=== PATIENT | female | born 1990 | race Caucasian/White ===

== ENCOUNTER 2016-07-02 18:16 | Emergency (ER) | payer OTHER ==
[2016-07-02] MEDS ORDERED: Azithromycin TAB* 250 MG PO ONE (18:57)
[2016-07-02] MEDS ORDERED: DOXYcycline CAP(*) 100 MG PO ONE (18:58)
--- NOTE | 2016-07-02 21:30 | UC ---
Jovana Fernandez Michael, scribed for Fanny Melgar MD on 07/02/16 at 1851 . Complaint Female HPI - HPI Summary HPI Summary: 26 y/o female comes to [facility] presenting with constant dysuria that started gradually today. The pt reports that the pain is a 3 out of 10 on a pain assessment scale. She also c/o vaginal discharge and abd pain. The abd pain is described as cramping and does not radiate to other parts of her body. She was drinking alcohol one ago and felt "hungover" this morning. She also had unprotected intercourse last night. The pt is A2. She had one miscarriage and one . The occurred in February 2016. Her LNMP was one month ago. The PMHx is significant for DM and 2 Cesarian sections. The pt denies taking control. Pt is a type I DM on the pump. - History Of Current Complaint Chief Complaint: UCGU Stated Complaint: POSSIBLE UTI Time Seen by Provider: 07/02/16 18:20 Hx Obtained From: Patient, Medical Records Hx Last Menstrual Period: 06/02 ?: No Onset/Duration: Gradual Onset, Lasting Days, Still Present Timing: Constant Severity Initially: Mild Severity Currently: Mild Pain Intensity: 3 Pain Scale Used: 0-10 Numeric Character: Cramping Aggravating Factor(s): Nothing Alleviating Factor(s): Nothing Associated Signs And Symptoms: Positive: Vaginal Discharge. Negative: Negative - positive dysuria and abd pain, Fever Related Hx: - 4, Para - 2, Prior STD Hx - chlamydia - Risk Factors Ectopic Risk Factor: Negative Ovarian Torsion Risk Factor: Negative - Allergies/Home Medications Allergies/Adverse Reactions: Allergies Allergy/AdvReac Type Severity Reaction Status Date / Time Amoxicillin Allergy Severe Anaphylatic Verified 01/29/16 17:48 Shock Cefaclor [From Ceclor] Allergy Severe Anaphylatic Verified 01/29/16 17:48 Shock Penicillins Allergy Severe Anaphylatic Verified 01/29/16 17:48 Shock PMH/Surg Hx/FS Hx/Imm Hx Endocrine History Of: Reports: Diabetes - Type I for 11 years. - Surgical History Surgical History: Yes Surgery Procedure, Year, and Place: C-SECTIONS x 2 - Family History Known Family History: Positive: None Negative: Diabetes, Seizure Disorder, Blood Disorder - Social History Occupation: Employed Full-time Lives: Alone Alcohol Use: Rare Substance Use Type: None Substance Use Comment - Amount & Last Used: occasional Smoking Status (MU): Light Every Day Tobacco Smoker Type: Cigarettes Amount Used/How Often: 1 PPD Have You Smoked in the Last Year: Yes - Immunization History Most Recent Influenza Vaccination: 2009 Most Recent Tetanus Shot: UNSURE Most Recent Pneumonia Vaccination: NEVER Review of Systems Constitutional: Negative - fever Gastrointestinal: Abdominal Pain Genitourinary: Dysuria, Other - vaginal discharge All Other Systems Reviewed And Are Negative: Yes Physical Exam Triage Information Reviewed: Yes Appearance: Well-Appearing, Well-Nourished, Pain Distress - mild Vital Signs: Initial Vital Signs Temp 98.5 F 07/02/16 18:23 Pulse 75 07/02/16 18:23 Resp 18 07/02/16 18:23 Pulse Ox 98 07/02/16 18:23 Vital Signs Reviewed: Yes Eyes: Positive: Conjunctiva Clear ENT Exam: Normal Neck: Positive: Supple Respiratory: Positive: Lungs clear, Normal breath sounds, No respiratory distress Cardiovascular: Positive: RRR, No Murmur, Pulses Normal, Brisk Capillary Refill Abdomen Description: Positive: Nontender, No Organomegaly, Soft, Other: - moderate vaginal discharge that was white. Cervix closed and non-tender. Uterus nml size and non-tender. Adnexae no masses and nontender. Negative: CVA Tenderness (R), CVA Tenderness (L), Distended, Guarding, McBurney's Point Tenderness, Peritoneal Signs Bowel Sounds: Positive: Present Musculoskeletal: Positive: Strength Intact, ROM Intact Neurological: Positive: Alert, Muscle Tone Normal Psychological Exam: Normal Skin Exam: Normal Complaint Female Dx - Course Course Of Treatment: Pt declines HIV testing and blood testing (syphilis). States she would like to treated for all STD's, is allergic to PCN and cephalosporin - Differential Dx/Diagnosis Differential Diagnosis/HQI/PQRI: Pelvic Inflammatory Disease, Urinary Tract Infection Provider Diagnoses: vaginitis. dysuria Discharge - Discharge Plan Condition: Stable Disposition: HOME Prescriptions: DOXYcycline CAP(*) [DOXYcycline 100MG CAP(*)] 100 mg PO BID #20 cap Patient Education Materials: Sexually Transmitted Diseases (ED) Referrals: Benigno Umana MD [Primary Care Provider] - Additional Instructions: Dr. Melgar has treated you with azithromycin 1000mg orally tonight, that is the treatment for chlamydia. She gave the first pill and has also sent a prescription for doxycycline 100mg, that needs to be taken twice a day for 10 days. This is the treatment for gonorrhea. You have chosen to have us treat you empirically for STDS, and we have taken note of your penicillin and cefaclor allergy in choosing your treatment. You have chosen not to be treated for syphilis or HIV at this time. We have also sent a culture of your urine and your vaginal discharge. We will notify you if you need further treatment based on those cultures, which will be back in a few days. Return to urgent care if you have any new or worsening symptoms. The documentation as recorded by the Jovana alexandre Michael accurately reflects the service I personally performed and the decisions made by , Fanny Melgar MD.
== END 2016-07-02 19:26 | disposition home or self-care (01) ==
LOC: UCEAST 18:16
DX: N76.0 Acute vaginitis (principal); R30.0 Dysuria; Z32.02 Encounter for pregnancy test, result negative; E10.9 Type 1 diabetes mellitus without complications; Z96.41 Presence of insulin pump (external) (internal); Z88.1 Allergy status to other antibiotic agents; Z88.0 Allergy status to penicillin; F17.210 Nicotine dependence, cigarettes, uncomplicated
CPT/HCPCS: 81002; 81025; 87077; 87086; 87186; 87480; 87491; 87510; 87591; 87661; 99212; A9270-GY; G0463

== ENCOUNTER 2016-09-08 19:48 | Emergency (ER) | payer OTHER ==
[2016-09-08 21:14] VITALS: BP 119/64
[2016-09-08] MEDS ORDERED: Fluconazole 100 MG TAB* TAB PO ONE (22:21)
--- NOTE | 2016-09-09 08:28 | UC ---
Complaint Female HPI - HPI Summary HPI Summary: Pleasant 26 yo female presents for evaluation treatment of white vag d/c and pruritus over the last couple days. No fever / chills. No abd or pelvic pain. Hx of similar in the past, and diflucan has helped. Wasn't able to see her doctor today, but plans to f/u. Does have a hx T 1 DM, has a pump, last few blood sugars a little high in the 200's. Last period one month ago, normal. - History Of Current Complaint Chief Complaint: UCGU Stated Complaint: DISCHARGE Time Seen by Provider: 09/08/16 22:20 Hx Obtained From: Patient Hx Last Menstrual Period: 08/11/16 Onset/Duration: Gradual Onset Pain Intensity: 0 Pain Scale Used: 0-10 Numeric - Allergies/Home Medications Allergies/Adverse Reactions: Allergies Allergy/AdvReac Type Severity Reaction Status Date / Time Amoxicillin Allergy Severe Anaphylatic Verified 09/08/16 21:13 Shock Cefaclor [From Ceclor] Allergy Severe Anaphylatic Verified 09/08/16 21:13 Shock Penicillins Allergy Severe Anaphylatic Verified 09/08/16 21:13 Shock Home Medications: Home Medications Escitalopram Oxalate [Lexapro] 20 mg PO 09/08/16 [History] hydrOXYzine HCL TAB* [Atarax TAB 50 MG *] 50 mg PO DAILY 09/08/16 [History Confirmed 09/08/16] PMH/Surg Hx/FS Hx/Imm Hx Previously Healthy: Yes - see hpi Endocrine History Of: Reports: Diabetes - Type I for 11 years. Denies: Thyroid Disease, Hyperthyroidism, Hypothyroidism, Dyslipidemia Cardiovascular History Of: Denies: Cardiac Disorders, Hypertension, Pacemaker/ICD, Myocardial Infarction , Congestive Heart Failure, Atrial Fibrillation, Deep Vein Thrombosis, Bleeding Disorders Respiratory History Of: Denies: COPD, Asthma, Bronchitis, Pneumonia, Pulmonary Embolism GI/ History Of: Denies: Gastroesophageal Reflux, Ulcer, Gastrointestinal Bleed, Gall Bladder Disease, Kidney Stones, Diverticulitis, Renal Disease, Urosepsis Neurological History Of: Denies: TIA, CVA, Dementia, Seizures, Migraine Psychological History Of: Denies: Anxiety, Depression, Bipolar Disorder, Schizophrenia, Post Traumatic Stress Disorder Cancer History Of: Denies: Lung Cancer, Colorectal Cancer, Breast Cancer, Prostate Cancer, Cervical Cancer Other History Of: Negative For: HIV, Hepatitis B, Hepatitis C - Surgical History Surgical History: Yes Surgery Procedure, Year, and Place: C-SECTIONS x 2 - Family History Known Family History: Positive: None Negative: Diabetes, Seizure Disorder, Blood Disorder - Social History Alcohol Use: None Substance Use Type: None Substance Use Comment - Amount & Last Used: occasional Smoking Status (MU): Light Every Day Tobacco Smoker Type: Cigarettes Amount Used/How Often: 1 PPD Length of Time of Smoking/Using Tobacco: 7 Have You Smoked in the Last Year: Yes - Immunization History Most Recent Influenza Vaccination: 2009 Most Recent Tetanus Shot: UNSURE Most Recent Pneumonia Vaccination: NEVER Review of Systems Constitutional: Negative Skin: Other - see hpi Eyes: Negative ENT: Negative Respiratory: Negative Cardiovascular: Negative Gastrointestinal: Negative Genitourinary: Other - freq / urgency. But not sure if abnormal. Motor: Negative Neurovascular: Negative Musculoskeletal: Negative Neurological: Negative Psychological: Negative All Other Systems Reviewed And Are Negative: Yes Physical Exam Triage Information Reviewed: Yes Appearance: Well-Appearing, Well-Nourished Vital Signs: Initial Vital Signs Temp 97.7 F 09/08/16 21:06 Pulse 89 09/08/16 21:06 Resp 16 09/08/16 21:06 BP 119/64 09/08/16 21:06 Pulse Ox 96 09/08/16 21:06 Vital Signs Reviewed: Yes ENT Exam: Normal Neck exam: Normal Respiratory Exam: Normal Respiratory: Positive: Chest non-tender, Lungs clear, Normal breath sounds, No respiratory distress, No accessory muscle use Cardiovascular Exam: Normal Cardiovascular: Positive: RRR, No Murmur, Pulses Normal, Brisk Capillary Refill Abdominal Exam: Normal Abdomen Description: Positive: Nontender, No Organomegaly - pump in place, Soft , Other: - Pelvic nontender. No cvat. Pt declines focused pelvic exam, citing that her current sx are just like past yeast vaginitis sx, most recently in the last 1-2 months. Musculoskeletal Exam: Normal - gait steady. moves all 4 ext's. Neurological Exam: Normal - nonfocal. grossly normal. Psychological Exam: Normal - conversing easily and appropriately. Skin Exam: Normal - no visible or reported rash, exp pruritus as per hpi Complaint Female Dx - Course Course Of Treatment: No new problems in CCC. Reviewed urine dip / ucg (neg). Will start diflucan (we only have 100mg available here, as such will dose with 200mg). Rx written so that she can take following day. Plans to f/u with pcp, per routine, will call on Sunday. Will seek medical attention sooner for worse or new problems in the meantime. Questions answered as posed. - Differential Dx/Diagnosis Provider Diagnoses: Vaginitis. Discharge - Discharge Plan Condition: Stable Disposition: HOME Prescriptions: Fluconazole 100 MG TAB* [Diflucan 100 MG TAB*] 150 mg PO DAILY #2 tab Patient Education Materials: Vulvovaginal Candidiasis (ED) Referrals: Benigno Umana MD [Primary Care Provider] - Additional Instructions: Follow up with your primary care physician, per routine. You have a urine culture in the lab. Seek medical attention for worse or new problems.
== END 2016-09-08 23:24 | disposition home or self-care (01) ==
LOC: UCEAST 19:48
DX: N76.0 Acute vaginitis (principal); E10.9 Type 1 diabetes mellitus without complications; Z96.41 Presence of insulin pump (external) (internal); Z88.1 Allergy status to other antibiotic agents; Z88.0 Allergy status to penicillin; F17.210 Nicotine dependence, cigarettes, uncomplicated; Z32.02 Encounter for pregnancy test, result negative
CPT/HCPCS: 81003; 84702; 87086; 99212; A9270-GY; G0463

== ENCOUNTER 2016-11-30 13:41 | Emergency (ER) | payer SELFPAY ==
[2016-11-30 14:05] VITALS: BP 108/59
--- NOTE | 2016-11-30 14:33 | UC ---
Complaint Female HPI - HPI Summary HPI Summary: Vaginal itching and burning for 1.5 weeks. Took oral diflucan last week with temporary relief, then much worse starting 3 days ago. Has also started a new sexual relationship with a male, interested in GC/Chlamydia testing and urine hcg due to late menses. - History Of Current Complaint Chief Complaint: UCGeneralIllness Stated Complaint: PERSONAL Time Seen by Provider: 11/30/16 14:02 Hx Obtained From: Patient Hx Last Menstrual Period: October 21, 2016 Onset/Duration: Gradual Onset, Lasting Weeks Timing: Intermittent Severity Initially: Mild Severity Currently: Mild Character: Burning Aggravating Factor(s): Urination Associated Signs And Symptoms: Negative: Fever, Back Pain, Vaginal Bleeding/ Discharge, Vaginal Discharge, Vomiting(# Of Episodes =) - Allergies/Home Medications Allergies/Adverse Reactions: Allergies Allergy/AdvReac Type Severity Reaction Status Date / Time Amoxicillin Allergy Severe Anaphylatic Verified 11/30/16 14:06 Shock Cefaclor [From Ceclor] Allergy Severe Anaphylatic Verified 11/30/16 14:06 Shock Penicillins Allergy Severe Anaphylatic Verified 11/30/16 14:06 Shock Home Medications: Home Medications Miconazole Nitrate Vaginal [Monistat 1 Combo Pack 1200 & 2 mg & %] 11/30/16 [ History] PMH/Surg Hx/FS Hx/Imm Hx Other History Of: Negative For: HIV, Hepatitis B, Hepatitis C - Surgical History Surgical History: Yes Surgery Procedure, Year, and Place: C-SECTIONS x 2 - Family History Known Family History: Negative: Diabetes, Seizure Disorder, Blood Disorder - Social History Alcohol Use: None Substance Use Type: None Substance Use Comment - Amount & Last Used: occasional Smoking Status (MU): Heavy Every Day Tobacco Smoker Type: Cigarettes Amount Used/How Often: 1 PPD Length of Time of Smoking/Using Tobacco: 7 Have You Smoked in the Last Year: Yes Cessation Counseling: Patient Advised to Stop - Immunization History Most Recent Influenza Vaccination: 2009 Most Recent Tetanus Shot: UNSURE Most Recent Pneumonia Vaccination: NEVER Review of Systems Constitutional: Negative Skin: Negative Eyes: Negative ENT: Negative Respiratory: Negative Cardiovascular: Negative Gastrointestinal: Negative Genitourinary: Other - vaginal itching Motor: Negative Neurovascular: Negative Musculoskeletal: Negative Neurological: Negative Psychological: Negative All Other Systems Reviewed And Are Negative: Yes Physical Exam Triage Information Reviewed: Yes Appearance: Well-Appearing, No Pain Distress, Well-Nourished Vital Signs: Initial Vital Signs Pulse 81 11/30/16 13:57 Resp 14 11/30/16 13:57 BP 108/59 11/30/16 13:57 Pulse Ox 99 11/30/16 13:57 Vital Signs Reviewed: Yes Eye Exam: Normal Eyes: Positive: Conjunctiva Clear ENT Exam: Normal ENT: Positive: Normal ENT inspection, Hearing grossly normal, Pharynx normal, TMs normal Dental Exam: Normal Neck exam: Normal Neck: Positive: Supple, Nontender, No Lymphadenopathy Respiratory Exam: Normal Respiratory: Positive: Chest non-tender, Lungs clear, Normal breath sounds, No respiratory distress, No accessory muscle use Cardiovascular Exam: Normal Cardiovascular: Positive: RRR, No Murmur Abdominal Exam: Normal Abdomen Description: Positive: Nontender, No Organomegaly, Soft Musculoskeletal Exam: Normal Neurological Exam: Normal Neurological: Positive: Alert Psychological Exam: Normal Skin Exam: Normal - Additional Comments pelvic exam performed, no ulcers, lesions, or masses to external genitalia. minor diffuse edema and redness to labia minora. Vaginal mucosa obscured by thick white vaginal medicine, swabs obtained and cervix nontender, no bleeding or masses. Adnexa nontender. Complaint Female Dx - Differential Dx/Diagnosis Provider Diagnoses: vaginitis, suspect yeast Discharge - Discharge Plan Condition: Stable Disposition: HOME Prescriptions: Fluconazole 100 MG TAB* [Diflucan 100 MG TAB*] 150 mg PO DAILY #2 tab Patient Education Materials: Vaginitis (ED) Referrals: Benigno Umana MD [Primary Care Provider] - Additional Instructions: I am treating you for yeast, but I have sent in testing for other possible causes for your symptoms as well. Please call or return if you have new or worsening symptoms.
--- NOTE | 2016-12-01 19:09 | UC ---
IYosef Aidan, scribed for Itzel Miller MD on 12/01/16 at 1829 . Progress - Progress Note Progress Note: RN to call patient. Rx for metronidazole e-scribed to pharmacy. Rx #[id number] The documentation as recorded by the damianibYosef brown Aidan accurately reflects the service I personally performed and the decisions made by Paul jordan Monica, MD.
== END 2016-11-30 14:49 | disposition home or self-care (01) ==
LOC: UCEAST 13:41
DX: N76.0 Acute vaginitis (principal); N92.5 Other specified irregular menstruation; Z32.02 Encounter for pregnancy test, result negative; Z11.3 Encounter for screening for infections with a predominantly sexual mode of transmission; Z88.1 Allergy status to other antibiotic agents; Z88.0 Allergy status to penicillin; F17.210 Nicotine dependence, cigarettes, uncomplicated
CPT/HCPCS: 81003; 84702; 87480; 87491; 87510; 87591; 87661; 99212; G0463

== ENCOUNTER 2016-12-15 08:49 | Emergency (ER) | payer SELFPAY ==
[2016-12-15 09:09] VITALS: BP 119/65
[2016-12-15 09:52] LABS: Hematocrit 39 % (35-47); Mean Corpuscular HGB Conc 34 g/dl (31-36); Mean Corpuscular Hemoglobin 31 pg (27-31); Mean Corpuscular Volume 93 fL (80-97); Mean Platelet Volume 8 um3 (7.4-10.4); Red Blood Count 4.15 10^6/ul (4.0-5.4); Red Cell Distribution Width 13 % (10.5-15); White Blood Count 5.8 10^3/ul (3.5-10.8)
[2016-12-15 09:54] LABS: Urine Bilirubin Negative (Negative); Urine Glucose Negative (Negative); Urine Nitrite Negative (Negative)
[2016-12-15 10:05] LABS: Albumin 4.1 g/dL (3.2-5.2); BUN/Creatinine Ratio 10.9 (8-20); EGFR African American 95.7 (>60); EGFR Non-African American 74.4 (>60); Potassium 3.9 mmol/L (3.5-5.0); Total Protein 6.6 g/dL (6.4-8.9)
[2016-12-15 10:06] LABS: Globulin 2.5 g/dL (2-4); Total Bilirubin 0.4 mg/dL (0.2-1.0)
--- NOTE | 2016-12-15 10:27 | ED ---
HPI Diabetic - HPI Summary HPI Summary: 26F w/ PMH of DM1 presents with hypoglycemia today. She was at home and her sugar was 30. She has an insulin pump which she has had for 2 years. She denies any recent illness. This is the second episode of this this week. Her boyfriend placed sugar in her gums and she became responsive again. She states she has been more active recently. She does not have anyone managing her DM at the moment as she lost her insurance and can not be seen by dr Nuñez anymore. She denies any cough, abdominal pain, or UTI symptoms - History Of Current Complaint Chief Complaint: EDDiabeticProb Time Seen by Provider: 12/15/16 09:01 - Allergies/Home Medications Allergies/Adverse Reactions: Allergies Allergy/AdvReac Type Severity Reaction Status Date / Time Amoxicillin Allergy Severe Anaphylatic Verified 11/30/16 14:06 Shock Cefaclor [From Ceclor] Allergy Severe Anaphylatic Verified 11/30/16 14:06 Shock Penicillins Allergy Severe Anaphylatic Verified 11/30/16 14:06 Shock PMH/Surg Hx/FS Hx/Imm Hx Endocrine/Hematology History: Reports: Hx Diabetes - Type I for 11 years. Denies: Hx Thyroid Disease Cardiovascular History: Denies: Hx Congestive Heart Failure, Hx Deep Vein Thrombosis, Hx Hypertension , Hx Myocardial Infarction, Hx Pacemaker/ICD Respiratory History: Denies: Hx Asthma, Hx Chronic Obstructive Pulmonary Disease (COPD), Hx Lung Cancer, Hx Pneumonia, Hx Pulmonary Embolism GI History: Denies: Hx Gall Bladder Disease, Hx Gastrointestinal Bleed, Hx Ulcer, Hx Urosepsis History: Reports: Other Problems/Disorders - UTI Denies: Hx Kidney Stones, Hx Renal Disease Neurological History: Denies: Hx Dementia, Hx Migraine, Hx Seizures, Hx Transient Ischemic Attacks (TIA) Psychiatric History: Denies: Hx Anxiety, Hx Depression, Hx Schizophrenia, Hx Bipolar Disorder - Surgical History Surgery Procedure, Year, and Place: C-SECTIONS x 2 Hx Anesthesia Reactions: No Infectious Disease History: No Infectious Disease History: Reports: Hx of Known/Suspected MRSA - back november 2015 Denies: Hx Clostridium Difficile, Hx Hepatitis, Hx Human Immunodeficiency Virus (HIV), Hx Shingles, Hx Tuberculosis, Hx Known/Suspected VRE, Hx Known/ Suspected VRSA, History Other Infectious Disease - MRSA, Traveled Outside the [place] in Last 30 Days - Family History Known Family History: Negative: Diabetes, Seizure Disorder, Blood Disorder - Social History Alcohol Use: None Hx Substance Use: No Substance Use Type: Reports: None Substance Use Comment - Amount & Last Used: occasional Hx Tobacco Use: Yes Smoking Status (MU): Heavy Every Day Tobacco Smoker Type: Cigarettes Amount Used/How Often: 1 PPD Length of Time of Smoking/Using Tobacco: 7 Have You Smoked in the Last Year: Yes Review of Systems Negative: Fever Negative: Chest Pain Negative: Shortness Of Breath Negative: Abdominal Pain All Other Systems Reviewed And Are Negative: Yes Physical Exam Triage Information Reviewed: Yes Vital Signs On Initial Exam: Initial Vitals Temp Pulse Resp BP Pulse Ox 97.3 F 80 17 131/81 100 12/15/16 08:51 12/15/16 08:51 12/15/16 08:51 12/15/16 08:51 12/15/16 08:51 Vital Signs Reviewed: Yes Appearance: Positive: Well-Appearing Skin: Positive: Warm, Dry Head/Face: Positive: Normal Head/Face Inspection Eyes: Positive: Normal, Conjunctiva Clear ENT: Positive: Normal ENT inspection, Pharynx normal, TMs normal Respiratory/Lung Sounds: Positive: Clear to Auscultation, Breath Sounds Present Cardiovascular: Positive: Normal, RRR Abdomen Description: Positive: Nontender, Soft Bowel Sounds: Positive: Present Neurological: Positive: Sensory/Motor Intact, Alert, Oriented to Person Place, Time, CN Intact II-III - Gee Coma Scale Coma Scale Total: 15 Diagnostics - Vital Signs Vital Signs Temp Pulse Resp BP Pulse Ox 12/15/16 09:06 68 100 12/15/16 09:04 98.4 F 61 18 119/65 100 12/15/16 09:03 119/65 12/15/16 08:51 97.3 F 80 17 131/81 100 - Laboratory Lab Results: Lab Results 12/15/16 12/15/16 12/15/16 Range/Units 08:59 09:45 09:45 WBC 5.8 (3.5-10.8) 10^3/ul RBC 4.15 (4.0-5.4) 10^6/ul Hgb 13.0 (12.0-16.0) g/dl Hct 39 (35-47) % MCV 93 (80-97) fL MCH 31 (27-31) pg MCHC 34 (31-36) g/dl RDW 13 (10.5-15) % Plt Count 239 (150-450) 10^3/ul MPV 8 (7.4-10.4) um3 Neut % (Auto) 62.8 (38-83) % Lymph % (Auto) 30.3 (25-47) % Loving % (Auto) 5.1 (1-9) % Eos % (Auto) 1.2 (0-6) % Baso % (Auto) 0.6 (0-2) % Absolute Neuts (auto) 3.6 (1.5-7.7) 10^3/ul Absolute Lymphs (auto) 1.8 (1.0-4.8) 10^3/ul Absolute Monos (auto) 0.3 (0-0.8) 10^3/ul Absolute Eos (auto) 0.1 (0-0.6) 10^3/ul Absolute Basos (auto) 0 (0-0.2) 10^3/ul Absolute Nucleated RBC 0 10^3/ul Nucleated RBC % 0 Sodium (133-145) mmol/L Potassium (3.5-5.0) mmol/L Chloride (101-111) mmol/L Carbon Dioxide (22-32) mmol/L Anion Gap (2-11) mmol/L BUN (6-24) mg/dL Creatinine (0.51-0.95) mg/dL Est GFR ( Amer) (>60) Est GFR (Non-Af Amer) (>60) BUN/Creatinine Ratio (8-20) Glucose (70-100) mg/dL POC Glucose (mg/dL) 59 L (74-106) mg/dL Calcium (8.6-10.3) mg/dL Total Bilirubin (0.2-1.0) mg/dL AST (13-39) U/L ALT (7-52) U/L Alkaline Phosphatase (34-104) U/L Total Protein (6.4-8.9) g/dL Albumin (3.2-5.2) g/dL Globulin (2-4) g/dL Albumin/Globulin Ratio (1-3) Urine Color Yellow Urine Appearance Clear Urine pH 6.0 (5-9) Ur Specific [place] 1.018 (1.010-1.030) Urine Protein Negative (Negative) Urine Ketones Negative (Negative) Urine Blood Negative (Negative) Urine Nitrate Negative (Negative) Urine Bilirubin Negative (Negative) Urine Urobilinogen Negative (Negative) Ur Leukocyte Esterase Negative (Negative) Urine Glucose Negative (Negative) 12/15/16 Range/Units 09:45 WBC (3.5-10.8) 10^3/ul RBC (4.0-5.4) 10^6/ul Hgb (12.0-16.0) g/dl Hct (35-47) % MCV (80-97) fL MCH (27-31) pg MCHC (31-36) g/dl RDW (10.5-15) % Plt Count (150-450) 10^3/ul MPV (7.4-10.4) um3 Neut % (Auto) (38-83) % Lymph % (Auto) (25-47) % Loving % (Auto) (1-9) % Eos % (Auto) (0-6) % Baso % (Auto) (0-2) % Absolute Neuts (auto) (1.5-7.7) 10^3/ul Absolute Lymphs (auto) (1.0-4.8) 10^3/ul Absolute Monos (auto) (0-0.8) 10^3/ul Absolute Eos (auto) (0-0.6) 10^3/ul Absolute Basos (auto) (0-0.2) 10^3/ul Absolute Nucleated RBC 10^3/ul Nucleated RBC % Sodium 137 (133-145) mmol/L Potassium 3.9 (3.5-5.0) mmol/L Chloride 105 (101-111) mmol/L Carbon Dioxide 26 (22-32) mmol/L Anion Gap 6 (2-11) mmol/L BUN 10 (6-24) mg/dL Creatinine 0.92 (0.51-0.95) mg/dL Est GFR ( Amer) 95.7 (>60) Est GFR (Non-Af Amer) 74.4 (>60) BUN/Creatinine Ratio 10.9 (8-20) Glucose 103 H (70-100) mg/dL POC Glucose (mg/dL) (74-106) mg/dL Calcium 9.0 (8.6-10.3) mg/dL Total Bilirubin 0.40 (0.2-1.0) mg/dL AST 15 (13-39) U/L ALT 11 (7-52) U/L Alkaline Phosphatase 35 (34-104) U/L Total Protein 6.6 (6.4-8.9) g/dL Albumin 4.1 (3.2-5.2) g/dL Globulin 2.5 (2-4) g/dL Albumin/Globulin Ratio 1.6 (1-3) Urine Color Urine Appearance Urine pH (5-9) Ur Specific [place] (1.010-1.030) Urine Protein (Negative) Urine Ketones (Negative) Urine Blood (Negative) Urine Nitrate (Negative) Urine Bilirubin (Negative) Urine Urobilinogen (Negative) Ur Leukocyte Esterase (Negative) Urine Glucose (Negative) Result Diagrams: 12/15/16 09:45 12/15/16 09:45 Lab Statement: Any lab studies that have been ordered have been reviewed, and results considered in the medical decision making process. Diabetic Course/Dx - Course Course Of Treatment: 26F w/ PMH of DM1 presents with hypoglycemia today. She was at home and her sugar was 30. She has an insulin pump which she has had for 2 years. She denies any recent illness. This is the second episode of this this week. Her boyfriend placed sugar in her gums and she became responsive again. She states she has been more active recently. She does not have anyone managing her DM at the moment as she lost her insurance and can not be seen by dr Nuñez anymore. inital glucose was 59 so gave juice and sugar 103. patient does not have pump on at moment. discussed likely need to lower basal insulin be a couple units but needs follow up with endo. social work arranged follow up. sent script for insulin. patient understands and agrees with plan - Diagnoses Differential Dx: Hyperglycemia, Hypoglycemia Provider Diagnoses: Hypoglycemia Discharge - Discharge Plan Condition: Good Disposition: HOME Prescriptions: Insulin Lispro [Humalog] 100 unit SC DAILY #3 vial Patient Education Materials: Hypoglycemia in a Person with Diabetes (ED) Referrals: Frankie Granda MD [Medical Doctor] - 12/20/16 9:45 am (This is the soonest appt available. No other appts available for several weeks.) Additional Instructions: Follow up with primary as soon as possible Lower baseline insulin by a couple of units Check blood sugar in the middle of the night to make sure do not become hypoglycemia Return to ED if develop any new or worsening symptoms
== END 2016-12-15 11:42 | disposition home or self-care (01) ==
LOC: ED 08:49
DX: E10.649 Type 1 diabetes mellitus with hypoglycemia without coma (principal); F17.210 Nicotine dependence, cigarettes, uncomplicated
CPT/HCPCS: 36415; 80053; 81003; 85025; 99282

== ENCOUNTER 2017-01-26 15:14 | Emergency (ER) | payer OTHER ==
--- NOTE | 2017-01-26 15:17 | UC ---
Complaint Female HPI - HPI Summary HPI Summary: 26 year old female presents with complains of urinary frequency, urgency and burning. - History Of Current Complaint Stated Complaint: POSS UTI Time Seen by Provider: 01/26/17 15:15 Hx Last Menstrual Period: October 21, 2016 - Allergies/Home Medications Allergies/Adverse Reactions: Allergies Allergy/AdvReac Type Severity Reaction Status Date / Time Amoxicillin Allergy Severe Anaphylatic Verified 01/26/17 15:28 Shock Cefaclor [From Ceclor] Allergy Severe Anaphylatic Verified 01/26/17 15:28 Shock Penicillins Allergy Severe Anaphylatic Verified 01/26/17 15:28 Shock PMH/Surg Hx/FS Hx/Imm Hx Previously Healthy: Yes Other History Of: Negative For: HIV, Hepatitis B, Hepatitis C - Surgical History Surgical History: Yes Surgery Procedure, Year, and Place: C-SECTIONS x 2 - Family History Known Family History: Negative: Diabetes, Seizure Disorder, Blood Disorder - Social History Alcohol Use: None Substance Use Type: None Substance Use Comment - Amount & Last Used: occasional Smoking Status (MU): Heavy Every Day Tobacco Smoker Type: Cigarettes Amount Used/How Often: 1 PPD Length of Time of Smoking/Using Tobacco: 7 Have You Smoked in the Last Year: Yes - Immunization History Most Recent Influenza Vaccination: 2009 Most Recent Tetanus Shot: UNSURE Most Recent Pneumonia Vaccination: NEVER Review of Systems Constitutional: Negative Skin: Negative Eyes: Negative ENT: Negative Respiratory: Negative Cardiovascular: Negative Gastrointestinal: Negative Genitourinary: Dysuria, Frequency, Urgency Motor: Negative Neurovascular: Negative Musculoskeletal: Negative Neurological: Negative Psychological: Negative All Other Systems Reviewed And Are Negative: Yes Physical Exam Triage Information Reviewed: Yes Eye Exam: Normal ENT Exam: Normal Dental Exam: Normal Neck exam: Normal Neck: Positive: 1 Respiratory Exam: Normal Cardiovascular Exam: Normal Abdominal Exam: Normal Musculoskeletal Exam: Normal Neurological Exam: Normal Psychological Exam: Normal Skin Exam: Normal Complaint Female Dx - Differential Dx/Diagnosis Provider Diagnoses: urinary frequency. urinary urgency Discharge - Discharge Plan Condition: Stable Disposition: HOME Prescriptions: Fluconazole [Fluconazole 150 mg tab] 150 mg PO ONCE #1 tab Nitrofurantoin Monohyd Macro [Macrobid] 100 mg PO BID #14 cap Patient Education Materials: Urinary Tract Infection in Women (ED) Referrals: Beingno Umana MD [Primary Care Provider] - If Needed
[2017-01-26 15:28] VITALS: BP 116/55
--- NOTE | 2017-01-28 17:34 | ED ---
Course/Dx - Course Course Of Treatment: URINE CX CAME BACK WITH STAPH AUREUS THAT IS SUSCEPTIBLE TO MACROBID. PT RXED MACROBID X 7 DAYS. - Diagnoses Provider Diagnoses: UTI (urinary tract infection)
== END 2017-01-26 15:51 | disposition home or self-care (01) ==
LOC: UCEAST 15:14
DX: N39.0 Urinary tract infection, site not specified (principal); B95.61 Methicillin susceptible Staphylococcus aureus infection as the cause of diseases classified elsewhere; Z32.02 Encounter for pregnancy test, result negative; Z88.0 Allergy status to penicillin; F17.210 Nicotine dependence, cigarettes, uncomplicated
CPT/HCPCS: 81003; 84702; 87077; 87086; 87186; 99212; G0463

== ENCOUNTER 2017-07-28 22:13 | Inpatient (IN) | payer OTHER ==
[2017-07-29 00:01] LABS: ABS Basophils 0 10^3/ul (0-0.2); ABS Eosinophils 0.2 10^3/ul (0-0.6); ABS Lymphocytes 1.8 10^3/ul (1.0-4.8); ABS Monocytes 0.4 10^3/ul (0-0.8); ABS Neutrophils 2.1 10^3/ul (1.5-7.7); ABS Nucleated RBC 0 10^3/ul; Eosinophil % 5.2 % (0-6); Hematocrit 36 % (35-47); Lymphocyte % 39.5 % (25-47); Mean Corpuscular HGB Conc 34 g/dl (31-36); Mean Corpuscular Hemoglobin 30 pg (27-31); Mean Corpuscular Volume 88 fL (80-97); Mean Platelet Volume 8 um3 (7.4-10.4); Nucleated Red Blood Cells % 0; Platelet Count 238 10^3/ul (150-450); Red Blood Count 4.07 10^6/ul (4.0-5.4); Red Cell Distribution Width 13 % (10.5-15); White Blood Count 4.6 10^3/ul (3.5-10.8)
[2017-07-29] MEDS ORDERED: Vancomycin(*) 1,000 MG in NS 0.9% 250 ML* 250 ML IVPB ONE (00:09)
[2017-07-29] MEDS ORDERED: NS 0.9% 1000 ML* 1,000 ML IV ONE ×3 (00:09→01:13)
[2017-07-29] MEDS ORDERED: Levofloxacin 750 MG IVPREMIX(* 750 MG/150 ML BAG IVPB ONE (00:09)
[2017-07-29] MEDS ORDERED: Ketorolac INJ* 30 MG/ML 1 ML VIAL IV PUSH ONE (00:10)
[2017-07-29 00:15] LABS: EGFR Non-African American 80.8 (>60)
[2017-07-29] MEDS ORDERED: Insulin REGULAR(*) 1 UNITS UNIT IV PUSH ONE (00:17)
--- NOTE | 2017-07-29 00:55 | ED ---
Gilmar Fernandez Tecjoon, scribed for Koffi Vidales MD on 07/29/17 at 0004 . Skin Complaint - HPI Summary HPI Summary: This patient is a 27 year old female presenting to [facility] accompanied by male field service poultry technician with a chief complaint of skin abscess on right arm since 3 days ago. The pain is rated 7/10 in severity. Symptoms aggravated by nothing. Symptoms alleviated by nothing. Patient additionally reports chills, discharge from abscess. - History of Current Complaint Chief Complaint: EDRashSkinAbscess Time Seen by Provider: 07/28/17 23:43 Stated Complaint: ABSCESS Hx Obtained From: Patient Hx Last Menstrual Period: October 21, 2016 Onset/Duration: Started Days Ago - 3, Still Present Timing: Constant Onset Severity: Mild Current Severity: Moderate Pain Intensity: 7 Pain Scale Used: 0-10 Numeric Skin Location: Arm - right arm Character: Hives, Redness Aggravating Symptom(s): Nothing Alleviating Symptom(s): Nothing Associated Signs & Symptoms: Chills - Additional Pertinent History Primary Care Physician: LORENA - Allergy/Home Medications Allergies/Adverse Reactions: Allergies Allergy/AdvReac Type Severity Reaction Status Date / Time amoxicillin Allergy Anaphylatic Verified 07/28/17 23:56 Shock cefaclor [From Ceclor] Allergy Anaphylatic Verified 07/28/17 23:56 Shock Penicillins Allergy Anaphylatic Verified 07/28/17 23:56 Shock PMH/Surg Hx/FS Hx/Imm Hx Previously Healthy: No Endocrine/Hematology History: Reports: Hx Diabetes - Type I for 11 years. Denies: Hx Thyroid Disease Cardiovascular History: Denies: Hx Congestive Heart Failure, Hx Deep Vein Thrombosis, Hx Hypertension , Hx Myocardial Infarction, Hx Pacemaker/ICD Respiratory History: Denies: Hx Asthma, Hx Chronic Obstructive Pulmonary Disease (COPD), Hx Lung Cancer, Hx Pneumonia, Hx Pulmonary Embolism GI History: Denies: Hx Gall Bladder Disease, Hx Gastrointestinal Bleed, Hx Ulcer, Hx Urosepsis History: Reports: Other Problems/Disorders - UTI Denies: Hx Kidney Stones, Hx Renal Disease Neurological History: Denies: Hx Dementia, Hx Migraine, Hx Seizures, Hx Transient Ischemic Attacks (TIA) Psychiatric History: Denies: Hx Anxiety, Hx Depression, Hx Schizophrenia, Hx Bipolar Disorder - Surgical History Surgery Procedure, Year, and Place: C-SECTIONS x 2 Hx Anesthesia Reactions: No Infectious Disease History: No Infectious Disease History: Reports: Hx of Known/Suspected MRSA - back november 2015 Denies: Hx Clostridium Difficile, Hx Hepatitis, Hx Human Immunodeficiency Virus (HIV), Hx Shingles, Hx Tuberculosis, Hx Known/Suspected VRE, Hx Known/ Suspected VRSA, History Other Infectious Disease - MRSA, Traveled Outside the [place] in Last 30 Days - Family History Known Family History: Negative: Diabetes, Seizure Disorder, Blood Disorder - Social History Alcohol Use: None Hx Substance Use: No Substance Use Type: Reports: None Substance Use Comment - Amount & Last Used: occasional Hx Tobacco Use: Yes Smoking Status (MU): Heavy Every Day Tobacco Smoker Type: Cigarettes Amount Used/How Often: 1 PPD Length of Time of Smoking/Using Tobacco: 7 Have You Smoked in the Last Year: Yes Review of Systems Positive: Chills Positive: Other - skin discharge, abscess All Other Systems Reviewed And Are Negative: Yes Physical Exam - Summary Physical Exam Summary: VITAL SIGNS: Reviewed. GENERAL: Patient is a well-developed and nourished female who is lying comfortable in the stretcher. Patient is not in any acute respiratory distress. HEAD AND FACE: No signs of trauma. No ecchymosis, hematomas or skull depressions. No sinus tenderness. EYES: PERRLA, EOMI x 2, No injected conjunctiva, no nystagmus. EARS: Hearing grossly intact. Ear canals and tympanic membranes are within normal limits. MOUTH: Oropharynx within normal limits. NECK: Supple, trachea is midline, no adenopathy, no JVD, no carotid bruit, no c- spine tenderness, neck with full ROM. CHEST: Symmetric, no tenderness at palpation LUNGS: Clear to auscultation bilaterally. No wheezing or crackles. CVS: Regular rate and rhythm, S1 and S2 present, no murmurs or gallops appreciated. ABDOMEN: Soft, non-tender. No signs of distention. No rebound no guarding, and no masses palpated. Bowel sounds are normal. EXTREMITIES: [id number] area of erythema, tenderness. Scanty discharge over the erythema,culture sent NEURO: Alert and oriented x 3. No acute neurological deficits. Speech is normal and follows commands. SKIN: Dry and warm Triage Information Reviewed: Yes Vital Signs On Initial Exam: Initial Vitals Temp Pulse Resp BP Pulse Ox 98.0 F 84 16 132/87 99 07/28/17 22:15 07/28/17 22:15 07/28/17 22:15 07/28/17 22:15 07/28/17 22:15 Vital Signs Reviewed: Yes Diagnostics - Vital Signs Vital Signs Temp Pulse Resp BP Pulse Ox 07/28/17 22:15 98.0 F 84 16 132/87 99 - Laboratory Lab Results: Lab Results 07/28/17 07/28/17 07/28/17 Range/Units 23:40 23:40 23:40 WBC 4.6 (3.5-10.8) 10^3/ul RBC 4.07 (4.0-5.4) 10^6/ul Hgb 12.0 (12.0-16.0) g/dl Hct 36 (35-47) % MCV 88 (80-97) fL MCH 30 (27-31) pg MCHC 34 (31-36) g/dl RDW 13 (10.5-15) % Plt Count 238 (150-450) 10^3/ul MPV 8 (7.4-10.4) um3 Neut % (Auto) 45.9 (38-83) % Lymph % (Auto) 39.5 (25-47) % Mcdonald % (Auto) 9.0 (1-9) % Eos % (Auto) 5.2 (0-6) % Baso % (Auto) 0.4 (0-2) % Absolute Neuts (auto) 2.1 (1.5-7.7) 10^3/ul Absolute Lymphs (auto) 1.8 (1.0-4.8) 10^3/ul Absolute Monos (auto) 0.4 (0-0.8) 10^3/ul Absolute Eos (auto) 0.2 (0-0.6) 10^3/ul Absolute Basos (auto) 0 (0-0.2) 10^3/ul Absolute Nucleated RBC 0 10^3/ul Nucleated RBC % 0 Sodium 132 L (133-145) mmol/L Potassium 3.6 (3.5-5.0) mmol/L Chloride 97 L (101-111) mmol/L Carbon Dioxide 29 (22-32) mmol/L Anion Gap 6 (2-11) mmol/L BUN 12 (6-24) mg/dL Creatinine 0.85 (0.51-0.95) mg/dL Est GFR ( Amer) 104.0 (>60) Est GFR (Non-Af Amer) 80.8 (>60) BUN/Creatinine Ratio 14.1 (8-20) Glucose 509 H* (70-100) mg/dL Lactic Acid 1.4 (0.5-2.0) mmol/L Calcium 9.2 (8.6-10.3) mg/dL Total Bilirubin 0.40 (0.2-1.0) mg/dL AST 47 H (13-39) U/L ALT 46 (7-52) U/L Alkaline Phosphatase 74 (34-104) U/L Total Protein 6.8 (6.4-8.9) g/dL Albumin 3.8 (3.2-5.2) g/dL Globulin 3.0 (2-4) g/dL Albumin/Globulin Ratio 1.3 (1-3) Result Diagrams: 07/28/17 23:40 07/28/17 23:40 Lab Statement: Any lab studies that have been ordered have been reviewed, and results considered in the medical decision making process. Course/Dx - Course Course Of Treatment: This patient is a 27 year old female presenting to [facility] accompanied by male field service poultry technician with a chief complaint of skin abscess on right arm since 3 days ago. Bloodwork Obtained. Urinalysis Obtained. In the ED course the patient was given Insulin, Toradol, Levofloxacin, Vancomycin. We discussed patient care with Dr. Amado (Hospitalist) and they agreed to accept the patient. Patient will be admitted with a diagnosis of cellulitis and hyperglycemia. The patient is agreeable with this plan. - Diagnoses Provider Diagnoses: Cellulitis, Hyperglycemia - Physician Notifications Discussed Care Of Patient With: Coleen Stack FIELD PARTY MANAGER - Hospitallist Time Discussed With Above Provider: 00:48 - We discussed patient care with Dr. Amado (Hospitalist) and they agreed to accept the patient. Instructed by Provider To: Admit As Inpatient Discharge - Discharge Plan Condition: Stable Disposition: ADMITTED TO [facility] Referrals: No Primary Care Phys,NOPCP [Primary Care Provider] - The documentation as recorded by the Gilmar alexandre Tecjoon accurately reflects the service I personally performed and the decisions made by , Koffi Vidales MD.
[2017-07-29] MEDS ORDERED: Senna TAB PO PRN (01:09)
[2017-07-29] MEDS ORDERED: Al Hydrox/Mg Hydrox/Simet LIQ* 30 ML UDC PO PRN (01:09)
[2017-07-29] MEDS ORDERED: Ondansetron INJ* 2 MG/ML VIAL IV PRN (01:09)
[2017-07-29] MEDS ORDERED: Docusate CAP* 100 MG PO PRN (01:09)
[2017-07-29] MEDS ORDERED: Ketorolac INJ* 15 MG/ML 1 ML VIAL IV PUSH PRN (01:14)
[2017-07-29] MEDS ORDERED: NS 0.9% 1000 ML* 1,000 ML IV SCH (01:15)
[2017-07-29] MEDS ORDERED: Vancomycin(*) 0 MG in NS 0.9% 250 ML* 250 ML IVPB SCH (02:00)
[2017-07-29 03:19] LABS: Urine Appearance Cloudy; Urine Blood Negative (Negative); Urine Color Yellow; Urine Ketones Negative (Negative); Urine Protein Negative (Negative); Urine Urobilinogen Negative (Negative)
[2017-07-29] MEDS ORDERED: Mouth Piece, Nicotine* 1 EACH CARTRIDGE INH PRN ×2 (03:48)
[2017-07-29] MEDS: Acetaminophen TAB* 325 MG PO PRN ×2 (04:09→19:35)
[2017-07-29] MEDS ORDERED: Vancomycin per Pharmacy* NOTE FOLLOW UP PRN (05:14)
[2017-07-29] MEDS ORDERED: diPHENhydraMINE PO* 25 MG ONE (06:40)
[2017-07-29] MEDS: diPHENhydraMINE PO* 25 MG PO PRN (06:42)
[2017-07-29] MEDS: Nicotine Inhaler* 10 MG AMP INH PRN ×3 (07:21→19:35)
--- NOTE | 2017-07-29 08:14 | PN ---
Subjective Date of Service: 07/29/17 Interval History: Up most of the night, feels tired, pain well controlled Objective Active Medications: Acetaminophen (Tylenol Tab*) 650 mg PO Q4H PRN PRN Reason: FEVER/PAIN Last Admin: 07/29/17 04:09 Dose: 650 mg Al Hydrox/Mg Hydrox/Simethicone (Maalox Plus*) 30 ml PO Q6H PRN PRN Reason: INDIGESTION Buprenorphine/Naloxone (Suboxone 8-2 Mg Sl Tab*) 1 tab.sl PO DAILY [facility] Device (Nicotine Mouth Piece*) 1 each INH .USE WITH NICOTROL PRN PRN Reason: CRAVING Last Admin: 07/29/17 07:20 Dose: 1 each Diphenhydramine HCl (Benadryl Po*) 25 mg PO Q6H PRN PRN Reason: ITCHING Last Admin: 07/29/17 06:42 Dose: 25 mg Docusate Sodium (Colace Cap*) 100 mg PO BID PRN PRN Reason: CONSTIPATION Sodium Chloride (Ns 0.9% 1000 Ml*) 1,000 mls @ 125 mls/hr IV PER RATE TUAN Last Admin: 07/29/17 04:10 Dose: 125 mls/hr Levofloxacin/Dextrose (Levaquin 750 Mg Ivpremix(*)) 750 mg in 150 mls @ 100 mls /hr IVPB Q24H TUAN Vancomycin HCl 750 mg/ Sodium (Chloride) 250 mls @ 166.667 mls/hr IVPB Q12H TUAN Ketorolac Tromethamine (Toradol Inj*) 15 mg IV PUSH Q6H PRN PRN Reason: PAIN Nicotine (Nicotine Inhaler*) 10 mg INH Q2H PRN PRN Reason: CRAVING Last Admin: 07/29/17 07:21 Dose: 10 mg Ondansetron HCl (Zofran Inj*) 4 mg IV Q4H PRN PRN Reason: NAUSEA/VOMITING Pharmacy Consult (Vancomycin Per Pharmacy*) 1 note FOLLOW UP . PRN PRN Reason: PER PROTOCOL Pharmacy Profile Note (Vancomycin Trough Check) 1 note FOLLOW UP 1530 ONE Stop: 07/30/17 15:31 Senna (Senokot Tab*) 1 tab PO BID PRN PRN Reason: CONSTIPATION Vital Signs - 8 hr 07/29/17 07/29/17 07/29/17 01:30 02:00 03:20 Temperature 0 F Pulse Rate 73 80 0 Respiratory 0 Rate Blood Pressure 129/69 119/64 0/0 (mmHg) O2 Sat by Pulse 99 98 0 Oximetry 07/29/17 07/29/17 07/29/17 03:27 04:43 06:42 Temperature 98.4 F Pulse Rate 68 Respiratory 16 16 14 Rate Blood Pressure 139/66 (mmHg) O2 Sat by Pulse 100 Oximetry Oxygen Devices in Use Now: None Appearance: NAD Eyes: No Scleral Icterus, PERRLA Ears/Nose/Mouth/Throat: NL Teeth, Lips, Gums, Clear Oropharnyx, Mucous Membranes Moist Neck: NL Appearance and Movements; NL JVP, Trachea Midline Respiratory: Symmetrical Chest Expansion and Respiratory Effort, Clear to Auscultation Cardiovascular: NL Sounds; No Murmurs; No JVD, RRR Abdominal: NL Sounds; No Tenderness; No Distention, No Hepatosplenomegaly Lymphatic: No Cervical Adenopathy Extremities: No Edema, No Clubbing, Cyanosis Skin: - - right medial forearm 1-2mm open ulceration draining serosangenous fluid, no odor, surrounding 2 in radius erythematous Neurological: Alert and Oriented x 3 Result Diagrams: 07/28/17 23:40 07/28/17 23:40 Additional Lab and Data: Lab Results 07/28/17 07/28/17 07/28/17 Range/Units 23:40 23:40 23:40 WBC 4.6 (3.5-10.8) 10^3/ul RBC 4.07 (4.0-5.4) 10^6/ul Hgb 12.0 (12.0-16.0) g/dl Hct 36 (35-47) % MCV 88 (80-97) fL MCH 30 (27-31) pg MCHC 34 (31-36) g/dl RDW 13 (10.5-15) % Plt Count 238 (150-450) 10^3/ul MPV 8 (7.4-10.4) um3 Neut % (Auto) 45.9 (38-83) % Lymph % (Auto) 39.5 (25-47) % Mifflin % (Auto) 9.0 (1-9) % Eos % (Auto) 5.2 (0-6) % Baso % (Auto) 0.4 (0-2) % Absolute Neuts (auto) 2.1 (1.5-7.7) 10^3/ul Absolute Lymphs (auto) 1.8 (1.0-4.8) 10^3/ul Absolute Monos (auto) 0.4 (0-0.8) 10^3/ul Absolute Eos (auto) 0.2 (0-0.6) 10^3/ul Absolute Basos (auto) 0 (0-0.2) 10^3/ul Absolute Nucleated RBC 0 10^3/ul Nucleated RBC % 0 Sodium 132 L (133-145) mmol/L Potassium 3.6 (3.5-5.0) mmol/L Chloride 97 L (101-111) mmol/L Carbon Dioxide 29 (22-32) mmol/L Anion Gap 6 (2-11) mmol/L BUN 12 (6-24) mg/dL Creatinine 0.85 (0.51-0.95) mg/dL Est GFR ( Amer) 104.0 (>60) Est GFR (Non-Af Amer) 80.8 (>60) BUN/Creatinine Ratio 14.1 (8-20) Glucose 509 H* (70-100) mg/dL Lactic Acid 1.4 (0.5-2.0) mmol/L Calcium 9.2 (8.6-10.3) mg/dL Total Bilirubin 0.40 (0.2-1.0) mg/dL AST 47 H (13-39) U/L ALT 46 (7-52) U/L Alkaline Phosphatase 74 (34-104) U/L Total Protein 6.8 (6.4-8.9) g/dL Albumin 3.8 (3.2-5.2) g/dL Globulin 3.0 (2-4) g/dL Albumin/Globulin Ratio 1.3 (1-3) Assess/Plan/Problems-Billing Assessment: 27 F h/o ICDU and Type I DM p/w right arm ulcer and cellulitis - Patient Problems (1) Cellulitis Comment: concern for underlying abscess, noted purulent drainage overnight, none this AM US pending, need for surgery and I&D to be determined multiple allergies with noted anaphylaxis - tx levaquin MRSA negative - stop vancomycin (2) DKA, type 1 Comment: Continue with insulin pump Currently has basal rate and self boluses based on carb counting and SS - will continue without change Check HbA1c Will need assistance established PCP for continued management (3) Nicotine abuse Comment: inhaler declines patch (4) IVDU (intravenous drug user) Comment: reportedly none x 3-4 months suboxone (5) DVT prophylaxis Comment: low risk OOB ad dandre
--- NOTE | 2017-07-29 09:10 | HP ---
HISTORY AND PHYSICAL: DATE OF ADMISSION: 07/29/17 TIME OF EVALUATION: 0100. PRIMARY CARE PHYSICIAN: The patient does not have a primary care physician. CHIEF COMPLAINT: Right upper extremity swelling, redness, and purulent drainage. HISTORY OF PRESENT ILLNESS: This is a 27-year-old female with past medical history of IV drug use with a history of MRSA infection who presents to the emergency room with worsening right forearm swelling, redness, and pain. The patient states for the past 4 to 5 days, she has noticed her right forearm with redness, swelling, it was a hard bump initially and then was able to express pus , but now there is an open wound there and she has significant amount of pain and discomfort. She states yesterday she felt warm and vomited twice. Today, she has been sleeping all day and very lethargic and no appetite. She states her blood sugars are not really that well controlled. She ran out of strips, had strips for several months and manages her insulin pump with carb counting and continuous infusion. She has had an issue trying to reestablish with the primary care physician due to insurance reasons. Regarding her IV drug use history, she states she last injected 3 months ago. She has had history of MRSA infection on her back in the past. She denies any chest pain or shortness of breath. No further nausea, vomiting, no abdominal pain, no urinary symptoms , otherwise remaining review of systems is negative. In the emergency room, the patient had labs. She was given a liter of fluid. She was told to give herself 10 units of insulin via her insulin pump. She was given 30 mg of Toradol and was ordered Levaquin and vancomycin and referred to the hospitalist service for further evaluation. PAST MEDICAL HISTORY: 1. History of IV drug use, per patient stopped 3 months ago and is now on Suboxone. 2. Type 1 diabetes, on insulin pump. 3. History of MRSA in her back. MEDICATIONS: 1. Insulin pump. The patient has continuous infusion and carb counts. 2. Suboxone 8 mg every morning. ALLERGIES: AMOXICILLIN, CEFACLOR, and PENICILLIN, anaphylactic shock. FAMILY HISTORY: Reviewed and noncontributory. SOCIAL HISTORY: The patient lives with her boyfriend and his family. She has children, who are not in her custody. She smokes about half a pack a day for the past 8 to 9 years. No alcohol use or illicit drug use. She works as a hairstylist. REVIEW OF SYSTEMS: A 14-point review of systems as mentioned in the HPI, otherwise negative. PHYSICAL EXAMINATION GENERAL: No acute distress, resting comfortably with her boyfriend at the bedside. VITAL SIGNS: Temp 98, pulse rate 84, respiratory rate 16, oxygen saturation 99 % on room air, blood pressure 132/87. HEENT: Head: Normocephalic. Pupils: Equal and reactive, anicteric. Oropharynx: Mucous membranes are moist. NECK: Supple. No lymphadenopathy. RESPIRATORY: Clear to auscultation. No wheezing, rhonchi, or rales. CARDIAC: Regular rate and rhythm. No murmurs, rubs, or gallops. ABDOMEN: Soft, nontender, nondistended. EXTREMITIES: No clubbing, cyanosis, or edema. The patient with her right upper extremity forearm with 4 to 6 cm confluent erythema and induration. She has 1 mm open area, not able to express any fluid, and two adjacent pinpoint areas that are open. She has good radial pulses. NEUROLOGIC: Alert and oriented x3. No focal neurologic deficits. SKIN: No stigmata for endocarditis. LABORATORY DATA: White count 4.6, hemoglobin 12, hematocrit 36, platelets 238. Blood gas 7.36, pCO2 53. Sodium 132, potassium 3.6, chloride 97, bicarb 29 , BUN 12, creatinine 0.89, glucose 509. HCG is less than 0.6. ASSESSMENT: This is a 27-year-old female with past medical history of IV drug use. She states she is now on Suboxone who presents to the emergency room with worsening right upper extremity swelling, redness, and purulent drainage. 1. Right upper extremity redness, swelling, and drainage. Assessment: The patient's findings are consistent with cellulitis and concern for abscess secondary to most likely IV drug use, but she states she has last used 3 months ago. She has a history of MRSA in the past. There is concern that there is still an abscess present on her physical exam. Plan: We will continue on vanco and Levaquin and follow up on her wound culture and her blood cultures. Continue to give IV fluids. We will order a soft tissue ultrasound to follow up to see if she needs further debridement. We will also place a social work consult and check a urine tox screen. We will have them do an official med rec as well. 2. Type 1 diabetes. The patient's blood sugar is 500. No evidence of DKA. She just received 10 units now. Plan: We will place her on a sliding scale with her pump for carb counting and correction factor sliding scale that the nurses can help instruct her how much to give. We will check a hemoglobin A1c. Again, Social Work to help make sure that she has the adequate supplies in place for this insulin pump and follow up as well. 3. IV drug use. The patient on Suboxone. Follow up with Social Work and urine tox screen. 4. FEN: Place patient on diabetic diet. 5. DVT prophylaxis: The patient scores no risk factors. We will encourage ambulation. 6. Code status: Full code. PATIENT TIME: Greater than 50 minutes spent doing the history and physical, more than half the time spent in direct patient contact. [id number]/CPS #: [id number] MTDD
[2017-07-29] MEDS: Buprenorphine/Naloxone 8-2 MG SL TAB* 1 TAB PO SCH (09:38)
--- NOTE | 2017-07-29 14:21 | RAD ---
Indication: Read tender distal RIGHT elbow. Comparison: No relevant prior exams available on the [facility] PACS for comparison. Technique: Limited ultrasound of the RIGHT forearm. REPORT AND IMPRESSION: Ultrasound caudal to the RIGHT elbow corresponding to the region of clinical concern documents extensive infiltrative edema within the subcutaneous tissue plane. No loculated fluid collection evident. No conspicuous foreign body evident.
[2017-07-29] MEDS ORDERED: Vancomycin(*) 750 MG in NS 0.9% 250 ML* 250 ML IVPB SCH (16:00)
[2017-07-30] MEDS: Levofloxacin 750 MG IVPREMIX(* 750 MG/150 ML BAG IVPB SCH (01:03)
[2017-07-30] MEDS: Nicotine Inhaler* 10 MG AMP INH PRN ×4 (01:14→14:52)
[2017-07-30] MEDS: Acetaminophen TAB* 325 MG PO PRN ×2 (08:04→11:58)
[2017-07-30] MEDS: Buprenorphine/Naloxone 8-2 MG SL TAB* 1 TAB PO SCH (08:05)
[2017-07-30] MEDS ORDERED: Tetan/Diph/Pertus SYR(Tdap)* 0.5 ML SYR(BOOSTRIX) use SYR IM ONE (13:25)
[2017-07-30] MEDS ORDERED: Vancomycin(*) 1,500 MG in NS 0.9% 250 ML* 250 ML IVPB ONE (14:00)
[2017-07-30] MEDS ORDERED: Vancomycin per Pharmacy* NOTE FOLLOW UP PRN (14:56)
[2017-07-30] MEDS ORDERED: Vancomycin Trough Check NOTE FOLLOW UP ONE (15:30)
[2017-07-30] MEDS: diPHENhydraMINE PO* 25 MG PO PRN (15:36)
--- NOTE | 2017-07-30 15:51 | PN ---
Subjective Date of Service: 07/30/17 Interval History: no complaints, denies arm pain, continue to have drainage from right arm. Denies chest pain or shortness of breath. Denies abd pain or N/V/D Family History: Unchanged from Admission Social History: Unchanged from Admission Past Medical History: Unchanged from Admission Objective Active Medications: Acetaminophen (Tylenol Tab*) 650 mg PO Q4H PRN PRN Reason: FEVER/PAIN Last Admin: 07/30/17 11:58 Dose: 650 mg Al Hydrox/Mg Hydrox/Simethicone (Maalox Plus*) 30 ml PO Q6H PRN PRN Reason: INDIGESTION Buprenorphine/Naloxone (Suboxone 8-2 Mg Sl Tab*) 1 tab.sl PO DAILY [facility] Last Admin: 07/30/17 08:05 Dose: 1 tab.sl Device (Nicotine Mouth Piece*) 1 each INH .USE WITH NICOTROL PRN PRN Reason: CRAVING Last Admin: 07/29/17 07:20 Dose: 1 each Diphenhydramine HCl (Benadryl Po*) 25 mg PO Q6H PRN PRN Reason: ITCHING Last Admin: 07/30/17 15:36 Dose: 25 mg Docusate Sodium (Colace Cap*) 100 mg PO BID PRN PRN Reason: CONSTIPATION Last Admin: 07/29/17 19:35 Dose: 100 mg Levofloxacin/Dextrose (Levaquin 750 Mg Ivpremix(*)) 750 mg in 150 mls @ 100 mls /hr IVPB Q24H [facility] Last Admin: 07/30/17 01:03 Dose: 100 mls/hr Vancomycin HCl 1,000 mg/ (Sodium Chloride) 250 mls @ 166.667 mls/hr IVPB Q8H [facility] Ketorolac Tromethamine (Toradol Inj*) 15 mg IV PUSH Q6H PRN PRN Reason: PAIN Nicotine (Nicotine Inhaler*) 10 mg INH Q2H PRN PRN Reason: CRAVING Last Admin: 07/30/17 14:52 Dose: 10 mg Ondansetron HCl (Zofran Inj*) 4 mg IV Q4H PRN PRN Reason: NAUSEA/VOMITING Pharmacy Consult (Vancomycin Per Pharmacy*) 1 note FOLLOW UP . PRN PRN Reason: PER PROTOCOL Pharmacy Profile Note (Vancomycin Trough Check) 1 note FOLLOW UP 1330 ONE Stop: 07/31/17 13:31 Senna (Senokot Tab*) 1 tab PO BID PRN PRN Reason: CONSTIPATION Vital Signs - 8 hr 07/30/17 07/30/17 07/30/17 07:48 08:00 08:05 Temperature 97.6 F Pulse Rate 49 Respiratory 16 16 16 Rate Blood Pressure 133/58 (mmHg) O2 Sat by Pulse 100 Oximetry 07/30/17 07/30/17 07/30/17 11:29 11:58 15:36 Temperature 97.7 F Pulse Rate 73 Respiratory 16 16 16 Rate Blood Pressure 133/59 (mmHg) O2 Sat by Pulse 99 Oximetry Oxygen Devices in Use Now: None Appearance: appears comfortable lying in bed Eyes: No Scleral Icterus Ears/Nose/Mouth/Throat: Clear Oropharnyx, Mucous Membranes Moist Neck: NL Appearance and Movements; NL JVP, Trachea Midline Respiratory: Symmetrical Chest Expansion and Respiratory Effort, Clear to Auscultation Cardiovascular: NL Sounds; No Murmurs; No JVD, RRR, No Edema Abdominal: NL Sounds; No Tenderness; No Distention Extremities: No Edema, No Clubbing, Cyanosis, - - full ROM to right arm CMST's intact to right arm radial pulse +2. flexion and extension intact to right and elbow. abduction and adduction intact to right hand Skin: - - dressing intact to right forearm, small amount of drainage noted to the dressing. mild redness and small open area noted to the anterior forearm Neurological: Alert and Oriented x 3, NL Sensation, NL Gait, NL Muscle Strength and Tone Nutrition: Taking PO's Result Diagrams: 07/28/17 23:40 07/28/17 23:40 Additional Lab and Data: Lab Results 07/28/17 07/28/17 07/28/17 Range/Units 23:40 23:40 23:40 WBC 4.6 (3.5-10.8) 10^3/ul RBC 4.07 (4.0-5.4) 10^6/ul Hgb 12.0 (12.0-16.0) g/dl Hct 36 (35-47) % MCV 88 (80-97) fL MCH 30 (27-31) pg MCHC 34 (31-36) g/dl RDW 13 (10.5-15) % Plt Count 238 (150-450) 10^3/ul MPV 8 (7.4-10.4) um3 Neut % (Auto) 45.9 (38-83) % Lymph % (Auto) 39.5 (25-47) % [place] % (Auto) 9.0 (1-9) % Eos % (Auto) 5.2 (0-6) % Baso % (Auto) 0.4 (0-2) % Absolute Neuts (auto) 2.1 (1.5-7.7) 10^3/ul Absolute Lymphs (auto) 1.8 (1.0-4.8) 10^3/ul Absolute Monos (auto) 0.4 (0-0.8) 10^3/ul Absolute Eos (auto) 0.2 (0-0.6) 10^3/ul Absolute Basos (auto) 0 (0-0.2) 10^3/ul Absolute Nucleated RBC 0 10^3/ul Nucleated RBC % 0 Sodium 132 L (133-145) mmol/L Potassium 3.6 (3.5-5.0) mmol/L Chloride 97 L (101-111) mmol/L Carbon Dioxide 29 (22-32) mmol/L Anion Gap 6 (2-11) mmol/L BUN 12 (6-24) mg/dL Creatinine 0.85 (0.51-0.95) mg/dL Est GFR ( Amer) 104.0 (>60) Est GFR (Non-Af Amer) 80.8 (>60) BUN/Creatinine Ratio 14.1 (8-20) Glucose 509 H* (70-100) mg/dL Lactic Acid 1.4 (0.5-2.0) mmol/L Calcium 9.2 (8.6-10.3) mg/dL Total Bilirubin 0.40 (0.2-1.0) mg/dL AST 47 H (13-39) U/L ALT 46 (7-52) U/L Alkaline Phosphatase 74 (34-104) U/L Total Protein 6.8 (6.4-8.9) g/dL Albumin 3.8 (3.2-5.2) g/dL Globulin 3.0 (2-4) g/dL Albumin/Globulin Ratio 1.3 (1-3) Assess/Plan/Problems-Billing Assessment: 27 F h/o ICDU and Type I DM p/w right arm ulcer and cellulitis - Patient Problems (1) Cellulitis Current Visit: Yes Status: Acute Code(s): L03.90 - CELLULITIS, UNSPECIFIED SNOMED Code(s): 015880699 Comment: concern for underlying abscess, noted purulent drainage overnight, none this AM US~ no abscess Patient remains afebrile multiple allergies with noted anaphylaxis - tx levaquin MRSA negative - stop vancomycin (2) DKA, type 1 Current Visit: Yes Status: Acute Code(s): E10.10 - TYPE 1 DIABETES MELLITUS WITH KETOACIDOSIS WITHOUT COMA SNOMED Code(s): 118612379 Comment: Continue with insulin pump Currently has basal rate and self boluses based on carb counting and SS - will continue without change Check HbA1c~ 9.3 Bllod glucose 246 this AM Will need assistance established PCP for continued management (3) IVDU (intravenous drug user) Current Visit: Yes Status: Acute Code(s): F19.90 - OTHER PSYCHOACTIVE SUBSTANCE USE, UNSPECIFIED, UNCOMPLICATED SNOMED Code(s): 109183954 Comment: reportedly none x 3-4 months suboxone (4) Nicotine abuse Current Visit: Yes Status: Acute Code(s): Z72.0 - TOBACCO USE SNOMED Code( s): 646499178 Comment: inhaler declines patch (5) DVT prophylaxis Current Visit: Yes Status: Acute Code(s): YUR7325 - SNOMED Code(s): 220824813 Comment: low risk OOB ad dandre (6) Full code status Current Visit: Yes Status: Acute Code(s): Z78.9 - OTHER SPECIFIED HEALTH STATUS SNOMED Code(s): 079177591
--- NOTE | 2017-07-30 21:58 | CONS ---
CONSULTATION REPORT: DATE OF CONSULTATION: 07/30/17 REQUESTING PROVIDER: Ashely Ham NP CONSULTING SERVICE: Infectious Disease. REASON FOR CONSULTATION: Right forearm infection. IMPRESSION: 1. Right forearm erythema, warmth, slight induration, no fluctuance. There is a 2 mm wound with serous drainage and ultrasound did not show an abscess. Range of motion of her fingers and wrist is normal, appears to be a purulent cellulitis growing a strep constellatus likely due to underlying needle exposure. 2. Last tetanus more than 10 years ago. 3. PENICILLIN, AMOXICILLIN, and CEFACLOR caused anaphylactic shock. RECOMMENDATIONS: 1. Continue Levaquin. We will add vancomycin until the susceptibility is back as strep constellatus is sometimes fairly resistant. 2. Tetanus shot. HISTORY OF PRESENT ILLNESS: This is a 27-year-old female with injection drug use in brief remission with right forearm infection. She is not entirely forthcoming with the details, but has had a couple of days of redness, pain, and swelling in the forearm without pain or range of motion of the elbow, wrist or fingers. She came to the hospital, started on vancomycin and Levaquin. White count was 4. She had ultrasound results as above. She has not had infection like this in the past. PAST MEDICAL HISTORY: 1. Injection drug use. 2. MRSA skin infection. 3. Type 1 diabetes with insulin pump. ALLERGIES: AMOXICILLIN, CEFACLOR, PENICILLIN caused anaphylactic shock. MEDICATIONS: 1. Tylenol. 2. Suboxone. 3. Docusate. 4. Insulin. 5. Levaquin 750 mg IV daily. 6. Nicotine inhaler. SOCIAL HISTORY: She lives with her significant other outside of [place]. No travel. FAMILY HISTORY: No recurrent infections. REVIEW OF SYSTEMS: All negative except as noted above. PHYSICAL EXAMINATION: Vital Signs: Temperature is 36.4, heart rate 70, respiratory rate 14, blood pressure 125/54, oxygen saturation 99% on room air. In general, she is awake and not in distress. Neurologic: She is oriented x3. Follows all commands. HEENT: There is no thrush. Heart is regular rate and rhythm without murmurs, rubs, or gallops. Lungs: Clear to auscultation bilaterally. Abdomen: Soft, nontender, nondistended. There are bowel sounds present. Skin: There is no rash or splinter hemorrhages. There is a right forearm 5 cm area of patchy erythema, which is blanching. There is a central 3 mm wound with serous drainage. There is no crepitus or fluctuance. Musculoskeletal: There is no spine tenderness to palpation or joint synovitis. LABORATORY DATA: White blood cell count 4, hemoglobin 12, platelets 238. Urinalysis shows glucose. Please see impressions and recommendations as outlined above, which I have discussed with Ashely Ham NP. Thank you for asking me to see Ms. Darby in consultation. [id number]/[facility] #: [id number] [facility]on
[2017-07-30] MEDS: Vancomycin(*) 1,000 MG in NS 0.9% 250 ML* 250 ML IVPB SCH (22:59)
[2017-07-31] MEDS: Levofloxacin 750 MG IVPREMIX(* 750 MG/150 ML BAG IVPB SCH (02:54)
[2017-07-31] MEDS: Nicotine Inhaler* 10 MG AMP INH PRN ×4 (03:00→22:40)
[2017-07-31] MEDS: Vancomycin(*) 1,000 MG in NS 0.9% 250 ML* 250 ML IVPB SCH ×3 (05:57→21:59)
[2017-07-31] MEDS: diPHENhydraMINE PO* 25 MG PO PRN ×3 (06:01→22:00)
[2017-07-31] MEDS: Acetaminophen TAB* 325 MG PO PRN ×2 (06:10→10:22)
[2017-07-31] MEDS: Buprenorphine/Naloxone 8-2 MG SL TAB* 1 TAB PO SCH (10:22)
[2017-07-31] MEDS ORDERED: Vancomycin Trough Check NOTE FOLLOW UP ONE (13:30)
[2017-07-31 15:37] LABS: Vancomycin Trough 11.8 mcg/mL
[2017-07-31] MEDS ORDERED: Dextrose 50% Syringe 50 ML* 25 GM/50 ML SYRINGE IV PUSH PRN (15:45)
--- NOTE | 2017-07-31 15:58 | PN ---
Subjective Date of Service: 07/31/17 Interval History: Patient states that she is feeling better. Denies chest pain or shortness of breath. Denies abd pain, N/V/D. Family History: Unchanged from Admission Social History: Unchanged from Admission Past Medical History: Unchanged from Admission Objective Active Medications: Acetaminophen (Tylenol Tab*) 650 mg PO Q4H PRN PRN Reason: FEVER/PAIN Last Admin: 07/31/17 10:22 Dose: 650 mg Al Hydrox/Mg Hydrox/Simethicone (Maalox Plus*) 30 ml PO Q6H PRN PRN Reason: INDIGESTION Buprenorphine/Naloxone (Suboxone 8-2 Mg Sl Tab*) 1 tab.sl PO DAILY [facility] Last Admin: 07/31/17 10:22 Dose: 1 tab.sl Device (Nicotine Mouth Piece*) 1 each INH .USE WITH NICOTROL PRN PRN Reason: CRAVING Last Admin: 07/29/17 07:20 Dose: 1 each Dextrose (D50w Syringe 50 Ml*) 12.5 gm IV PUSH .FOR FS < 60 - SS PRN PRN Reason: FS < 60 Diphenhydramine HCl (Benadryl Po*) 25 mg PO Q6H PRN PRN Reason: ITCHING Last Admin: 07/31/17 15:44 Dose: 25 mg Docusate Sodium (Colace Cap*) 100 mg PO BID PRN PRN Reason: CONSTIPATION Last Admin: 07/29/17 19:35 Dose: 100 mg Levofloxacin/Dextrose (Levaquin 750 Mg Ivpremix(*)) 750 mg in 150 mls @ 100 mls /hr IVPB Q24H [facility] Last Admin: 07/31/17 02:54 Dose: 100 mls/hr Vancomycin HCl 1,000 mg/ (Sodium Chloride) 250 mls @ 166.667 mls/hr IVPB Q8H [facility] Last Admin: 07/31/17 15:44 Dose: 166.667 mls/hr Insulin Glargine (Lantus(*)) 20 units SUBCUT Q24H [facility] Insulin Human Lispro (Humalog*) 0 units SUBCUT ACHS [facility] PRN Reason: Protocol Insulin Human Lispro (Humalog*) 0 units SUBCUT ACHS [facility] PRN Reason: Protocol Ketorolac Tromethamine (Toradol Inj*) 15 mg IV PUSH Q6H PRN PRN Reason: PAIN Nicotine (Nicotine Inhaler*) 10 mg INH Q2H PRN PRN Reason: CRAVING Last Admin: 07/31/17 15:13 Dose: 10 mg Ondansetron HCl (Zofran Inj*) 4 mg IV Q4H PRN PRN Reason: NAUSEA/VOMITING Pharmacy Consult (Vancomycin Per Pharmacy*) 1 note FOLLOW UP . PRN PRN Reason: PER PROTOCOL Senna (Senokot Tab*) 1 tab PO BID PRN PRN Reason: CONSTIPATION Vital Signs - 8 hr 07/31/17 07/31/17 07/31/17 08:16 10:22 11:38 Temperature 97.6 F Pulse Rate 52 Respiratory 16 16 18 Rate Blood Pressure 119/44 (mmHg) O2 Sat by Pulse 99 Oximetry 07/31/17 07/31/17 12:27 15:44 Temperature Pulse Rate Respiratory 16 16 Rate Blood Pressure (mmHg) O2 Sat by Pulse Oximetry Oxygen Devices in Use Now: None Appearance: appears comfortable sitting in bed Eyes: No Scleral Icterus Ears/Nose/Mouth/Throat: Clear Oropharnyx, Mucous Membranes Moist Neck: NL Appearance and Movements; NL JVP, Trachea Midline Respiratory: Symmetrical Chest Expansion and Respiratory Effort, Clear to Auscultation Cardiovascular: NL Sounds; No Murmurs; No JVD, No Edema Abdominal: NL Sounds; No Tenderness; No Distention Extremities: No Edema, No Clubbing, Cyanosis Skin: - - right forearm with mild redness and induration. Small open area noted draining purlent drainage. Neurological: Alert and Oriented x 3, NL Gait, NL Muscle Strength and Tone Nutrition: Taking PO's Result Diagrams: 07/28/17 23:40 07/31/17 14:47 Additional Lab and Data: Lab Results 07/28/17 07/28/17 07/28/17 Range/Units 23:40 23:40 23:40 WBC 4.6 (3.5-10.8) 10^3/ul RBC 4.07 (4.0-5.4) 10^6/ul Hgb 12.0 (12.0-16.0) g/dl Hct 36 (35-47) % MCV 88 (80-97) fL MCH 30 (27-31) pg MCHC 34 (31-36) g/dl RDW 13 (10.5-15) % Plt Count 238 (150-450) 10^3/ul MPV 8 (7.4-10.4) um3 Neut % (Auto) 45.9 (38-83) % Lymph % (Auto) 39.5 (25-47) % [place] % (Auto) 9.0 (1-9) % Eos % (Auto) 5.2 (0-6) % Baso % (Auto) 0.4 (0-2) % Absolute Neuts (auto) 2.1 (1.5-7.7) 10^3/ul Absolute Lymphs (auto) 1.8 (1.0-4.8) 10^3/ul Absolute Monos (auto) 0.4 (0-0.8) 10^3/ul Absolute Eos (auto) 0.2 (0-0.6) 10^3/ul Absolute Basos (auto) 0 (0-0.2) 10^3/ul Absolute Nucleated RBC 0 10^3/ul Nucleated RBC % 0 Sodium 132 L (133-145) mmol/L Potassium 3.6 (3.5-5.0) mmol/L Chloride 97 L (101-111) mmol/L Carbon Dioxide 29 (22-32) mmol/L Anion Gap 6 (2-11) mmol/L BUN 12 (6-24) mg/dL Creatinine 0.85 (0.51-0.95) mg/dL Est GFR ( Amer) 104.0 (>60) Est GFR (Non-Af Amer) 80.8 (>60) BUN/Creatinine Ratio 14.1 (8-20) Glucose 509 H* (70-100) mg/dL Lactic Acid 1.4 (0.5-2.0) mmol/L Calcium 9.2 (8.6-10.3) mg/dL Total Bilirubin 0.40 (0.2-1.0) mg/dL AST 47 H (13-39) U/L ALT 46 (7-52) U/L Alkaline Phosphatase 74 (34-104) U/L Total Protein 6.8 (6.4-8.9) g/dL Albumin 3.8 (3.2-5.2) g/dL Globulin 3.0 (2-4) g/dL Albumin/Globulin Ratio 1.3 (1-3) Assess/Plan/Problems-Billing Assessment: 27 F h/o ICDU and Type I DM p/w right arm ulcer and cellulitis - Patient Problems (1) Cellulitis Current Visit: Yes Status: Acute Code(s): L03.90 - CELLULITIS, UNSPECIFIED SNOMED Code(s): 236550068 Comment: concern for underlying abscess, noted purulent drainage overnight, minimal drainage this AM US~ no abscess Patient remains afebrile multiple allergies with noted anaphylaxis - tx levaquin MRSA negative - vancomycin started yesterday Will discharge home on Levaquin 750 mg daily for 10 days (2) DKA, type 1 Current Visit: Yes Status: Acute Code(s): E10.10 - TYPE 1 DIABETES MELLITUS WITH KETOACIDOSIS WITHOUT COMA SNOMED Code(s): 738595443 Comment: Continue with insulin pump ~ stopped will place on SS scale and CC coverage and lantus with AC and HS finger sticks Currently has basal rate and self boluses based on carb counting and SS - will continue ~ patient reports that her insulin is old has not had a new script in 1 years, just recently had old PMD refill her insulin as she was out. reports that she has not had supplies for her insulin pump sent to her 6 months- states saurabh lozada had supplies that were leftover and has been using them- she is not forthcoming with information about her supplies. Will have case management see to ensure supplies are available Check HbA1c~ 9.3 Bllod glucose 246 this AM Will need assistance established PCP for continued management (3) IVDU (intravenous drug user) Current Visit: Yes Status: Acute Code(s): F19.90 - OTHER PSYCHOACTIVE SUBSTANCE USE, UNSPECIFIED, UNCOMPLICATED SNOMED Code(s): 899858890 Comment: reportedly none x 3-4 months suboxone (4) Nicotine abuse Current Visit: Yes Status: Acute Code(s): Z72.0 - TOBACCO USE SNOMED Code( s): 275054466 Comment: inhaler declines patch (5) DVT prophylaxis Current Visit: Yes Status: Acute Code(s): HAO0031 - SNOMED Code(s): 338492897 Comment: low risk OOB ad dandre (6) Full code status Current Visit: Yes Status: Acute Code(s): Z78.9 - OTHER SPECIFIED HEALTH STATUS SNOMED Code(s): 005203186
[2017-07-31] MEDS: Insulin GLARGINE(*) 1 UNITS UNIT SUBCUT SCH (16:45)
[2017-07-31] MEDS: Insulin LISPRO* 1 UNITS UNIT SUBCUT SCH ×4 (18:13→21:51)
[2017-08-01] MEDS: Levofloxacin 750 MG IVPREMIX(* 750 MG/150 ML BAG IVPB SCH (02:30)
[2017-08-01 04:55] LABS: ABS Basophils 0 10^3/ul (0-0.2); ABS Eosinophils 0.2 10^3/ul (0-0.6); ABS Lymphocytes 2.7 10^3/ul (1.0-4.8); ABS Monocytes 0.4 10^3/ul (0-0.8); ABS Neutrophils 2.5 10^3/ul (1.5-7.7); ABS Nucleated RBC 0 10^3/ul; Eosinophil % 2.9 % (0-6); Hematocrit 33 % (35-47); Hemoglobin 11.1 g/dl (12.0-16.0); Lymphocyte % 46.9 % (25-47); Mean Corpuscular HGB Conc 34 g/dl (31-36); Mean Corpuscular Hemoglobin 30 pg (27-31); Mean Corpuscular Volume 88 fL (80-97); Mean Platelet Volume 8 um3 (7.4-10.4); Nucleated Red Blood Cells % 0; Platelet Count 215 10^3/ul (150-450); Red Blood Count 3.77 10^6/ul (4.0-5.4); Red Cell Distribution Width 14 % (10.5-15); White Blood Count 5.8 10^3/ul (3.5-10.8)
[2017-08-01 05:07] LABS: EGFR Non-African American 104.6 (>60)
[2017-08-01] MEDS: Vancomycin(*) 1,000 MG in NS 0.9% 250 ML* 250 ML IVPB SCH ×2 (06:09→13:57)
[2017-08-01] MEDS: diPHENhydraMINE PO* 25 MG PO PRN ×2 (06:11→14:00)
[2017-08-01] MEDS: Nicotine Inhaler* 10 MG AMP INH PRN ×3 (06:15→12:59)
[2017-08-01] MEDS: Insulin LISPRO* 1 UNITS UNIT SUBCUT SCH ×6 (09:47→18:19)
[2017-08-01] MEDS: Buprenorphine/Naloxone 8-2 MG SL TAB* 1 TAB PO SCH (09:48)
[2017-08-01] MEDS ORDERED: NS 0.9% 250 ML* 250 ML ONE (13:54)
--- NOTE | 2017-08-01 17:25 | PN ---
Subjective Date of Service: 08/01/17 Interval History: STATES THAT SHE IS FEELING BETTER , DENIES CHEST PAIN OR SHORTNESS OF BREATH , DENIES ABD PAIN , N/V/D Family History: Unchanged from Admission Social History: Unchanged from Admission Past Medical History: Unchanged from Admission Objective Active Medications: Acetaminophen (Tylenol Tab*) 650 mg PO Q4H PRN PRN Reason: FEVER/PAIN Last Admin: 07/31/17 10:22 Dose: 650 mg Al Hydrox/Mg Hydrox/Simethicone (Maalox Plus*) 30 ml PO Q6H PRN PRN Reason: INDIGESTION Buprenorphine/Naloxone (Suboxone 8-2 Mg Sl Tab*) 1 tab.sl PO [facility]ILY [facility] Last Admin: 08/01/17 09:48 Dose: 1 tab.sl Device (Nicotine Mouth Piece*) 1 each INH .USE WITH NICOTROL PRN PRN Reason: CRAVING Last Admin: 07/29/17 07:20 Dose: 1 each Dextrose (D50w Syringe 50 Ml*) 12.5 gm IV PUSH .FOR FS < 60 - SS PRN PRN Reason: FS < 60 Diphenhydramine HCl (Benadryl Po*) 25 mg PO Q6H PRN PRN Reason: ITCHING Last Admin: 08/01/17 14:00 Dose: 25 mg Docusate Sodium (Colace Cap*) 100 mg PO BID PRN PRN Reason: CONSTIPATION Last Admin: 07/29/17 19:35 Dose: 100 mg Levofloxacin/Dextrose (Levaquin 750 Mg Ivpremix(*)) 750 mg in 150 mls @ 100 mls /hr IVPB Q24H [facility] Last Admin: 08/01/17 02:30 Dose: 100 mls/hr Vancomycin HCl 1,000 mg/ (Sodium Chloride) 250 mls @ 166.667 mls/hr IVPB Q8H [facility] Last Admin: 08/01/17 13:57 Dose: 166.667 mls/hr Insulin Glargine (Lantus(*)) 20 units SUBCUT Q24H [facility] Last Admin: 07/31/17 16:45 Dose: 20 units Insulin Human Lispro (Humalog*) [facility] PRN Reason: Protocol Last Admin: 08/01/17 13:55 Dose: 2 units Insulin Human Lispro (Humalog*) 0 units SUBCUT ACHS [facility] PRN Reason: Protocol Last Admin: 08/01/17 13:56 Dose: 5 units Ketorolac Tromethamine (Toradol Inj*) 15 mg IV PUSH Q6H PRN PRN Reason: PAIN Nicotine (Nicotine Inhaler*) 10 mg INH Q2H PRN PRN Reason: CRAVING Last Admin: 08/01/17 12:59 Dose: 10 mg Ondansetron HCl (Zofran Inj*) 4 mg IV Q4H PRN PRN Reason: NAUSEA/VOMITING Pharmacy Consult (Vancomycin Per Pharmacy*) 1 note FOLLOW UP . PRN PRN Reason: PER PROTOCOL Senna (Senokot Tab*) 1 tab PO BID PRN PRN Reason: CONSTIPATION Vital Signs - 8 hr 08/01/17 08/01/17 08/01/17 09:48 11:29 12:22 Temperature 98.4 F Pulse Rate 70 Respiratory 18 16 16 Rate Blood Pressure 165/77 (mmHg) O2 Sat by Pulse 99 Oximetry 08/01/17 14:00 Temperature Pulse Rate Respiratory 18 Rate Blood Pressure (mmHg) O2 Sat by Pulse Oximetry Oxygen Devices in Use Now: None Appearance: APPEARS COMFORTABLE SITTING IN BED Eyes: No Scleral Icterus Ears/Nose/Mouth/Throat: Clear Oropharnyx, Mucous Membranes Moist Neck: NL Appearance and Movements; NL JVP, Trachea Midline Respiratory: Symmetrical Chest Expansion and Respiratory Effort, Clear to Auscultation Cardiovascular: NL Sounds; No Murmurs; No JVD, RRR, No Edema Abdominal: NL Sounds; No Tenderness; No Distention Extremities: No Edema, No Clubbing, Cyanosis Skin: - - ERYTHEMA AND MILD SWELLING NOTED TO RIGHT FOREARM- IMPROVING MINIMAL DRAINAGE Result Diagrams: 08/01/17 04:09 08/01/17 04:09 Additional Lab and Data: Lab Results 07/28/17 07/28/17 07/28/17 Range/Units 23:40 23:40 23:40 WBC 4.6 (3.5-10.8) 10^3/ul RBC 4.07 (4.0-5.4) 10^6/ul Hgb 12.0 (12.0-16.0) g/dl Hct 36 (35-47) % MCV 88 (80-97) fL MCH 30 (27-31) pg MCHC 34 (31-36) g/dl RDW 13 (10.5-15) % Plt Count 238 (150-450) 10^3/ul MPV 8 (7.4-10.4) um3 Neut % (Auto) 45.9 (38-83) % Lymph % (Auto) 39.5 (25-47) % [place] % (Auto) 9.0 (1-9) % Eos % (Auto) 5.2 (0-6) % Baso % (Auto) 0.4 (0-2) % Absolute Neuts (auto) 2.1 (1.5-7.7) 10^3/ul Absolute Lymphs (auto) 1.8 (1.0-4.8) 10^3/ul Absolute Monos (auto) 0.4 (0-0.8) 10^3/ul Absolute Eos (auto) 0.2 (0-0.6) 10^3/ul Absolute Basos (auto) 0 (0-0.2) 10^3/ul Absolute Nucleated RBC 0 10^3/ul Nucleated RBC % 0 Sodium 132 L (133-145) mmol/L Potassium 3.6 (3.5-5.0) mmol/L Chloride 97 L (101-111) mmol/L Carbon Dioxide 29 (22-32) mmol/L Anion Gap 6 (2-11) mmol/L BUN 12 (6-24) mg/dL Creatinine 0.85 (0.51-0.95) mg/dL Est GFR ( Amer) 104.0 (>60) Est GFR (Non-Af Amer) 80.8 (>60) BUN/Creatinine Ratio 14.1 (8-20) Glucose 509 H* (70-100) mg/dL Lactic Acid 1.4 (0.5-2.0) mmol/L Calcium 9.2 (8.6-10.3) mg/dL Total Bilirubin 0.40 (0.2-1.0) mg/dL AST 47 H (13-39) U/L ALT 46 (7-52) U/L Alkaline Phosphatase 74 (34-104) U/L Total Protein 6.8 (6.4-8.9) g/dL Albumin 3.8 (3.2-5.2) g/dL Globulin 3.0 (2-4) g/dL Albumin/Globulin Ratio 1.3 (1-3) Assess/Plan/Problems-Billing Assessment: 27 F h/o ICDU and Type I DM p/w right arm ulcer and cellulitis - Patient Problems (1) Cellulitis Current Visit: Yes Status: Acute Code(s): L03.90 - CELLULITIS, UNSPECIFIED SNOMED Code(s): 759424421 Comment: minimal drainage this AM US~ no abscess Patient remains afebrile multiple allergies with noted anaphylaxis - tx levaquin MRSA negative - vancomycin started 2 DAYS AGO Will discharge home on Levaquin 750 mg daily for 10 days (2) DKA, type 1 Current Visit: Yes Status: Acute Code(s): E10.10 - TYPE 1 DIABETES MELLITUS WITH KETOACIDOSIS WITHOUT COMA SNOMED Code(s): 581971141 Comment: Continue with insulin pump ~ stopped will place on SS scale and CC coverage and lantus with AC and HS finger sticks Currently has basal rate and self boluses based on carb counting and SS - will continue ~ patient reports that her insulin is old has not had a new script in 1 years, just recently had old PMD refill her insulin as she was out. reports that she has not had supplies for her insulin pump sent to her 6 months- states saurabh lozada had supplies that were leftover and has been using them- she is not forthcoming with information about her supplies. Will have case management see to ensure supplies are available Check HbA1c~ 9.3 Bllod glucoseIMPROVED 146 this AM Will need assistance established PCP for continued management (3) IVDU (intravenous drug user) Current Visit: Yes Status: Acute Code(s): F19.90 - OTHER PSYCHOACTIVE SUBSTANCE USE, UNSPECIFIED, UNCOMPLICATED SNOMED Code(s): 267355400 Comment: reportedly none x 3-4 months suboxone (4) Nicotine abuse Current Visit: Yes Status: Acute Code(s): Z72.0 - TOBACCO USE SNOMED Code( s): 489011813 Comment: inhaler declines patch (5) DVT prophylaxis Current Visit: Yes Status: Acute Code(s): TSA8970 - SNOMED Code(s): 942389789 Comment: low risk OOB ad dandre (6) Full code status Current Visit: Yes Status: Acute Code(s): Z78.9 - OTHER SPECIFIED HEALTH STATUS SNOMED Code(s): 490190536 Status and Disposition: DISCHARGE HOME
[2017-08-01] MEDS: Insulin GLARGINE(*) 1 UNITS UNIT SUBCUT SCH (18:12)
[2017-08-01 18:30] VITALS: BP 143/60
--- NOTE | 2017-08-02 18:13 | DS ---
CC: Mala Gutierrez NP * DISCHARGE SUMMARY: DATE OF ADMISSION: 07/29/17 DATE OF DISCHARGE: 08/01/17 PROVIDER: Ashely Ham NP ATTENDING PHYSICIAN: Angeles Martinez MD * (dictated by Ashely Ham NP) PRIMARY CARE PROVIDER: French primary care provider, Mala Gutierrez NP PRIMARY DIAGNOSIS: Cellulitis. SECONDARY DIAGNOSES: 1. Type 1 diabetes on an insulin pump. 2. History of methicillin-resistant Staphylococcus aureus. 3. History of IV drug use, stopped 3 months ago and is currently on Suboxone. STUDIES COMPLETED WHILE IN THE HOSPITAL: She had an ultrasound of the soft tissue of her right forearm, which showed ultrasound caudal to the right elbow corresponding to the region of clinical concern documented extensive infiltrate edema within the subcutaneous tissue plane, no loculated fluid collection evident, no conspicuous foreign body evident. DISCHARGE MEDICATIONS: 1. Levaquin 750 mg p.o. daily for 10 days. Continued home medications: 1. Humalog insulin pump as previously prescribed. 2. Ibuprofen 600 mg every 6 hours as needed for pain. 3. Suboxone 8/2 mg sublingual tab, 1 tab p.o. daily. HISTORY OF PRESENT ILLNESS AND HOSPITAL COURSE: Ms. Darby is a 27-year-old female with a past medical history of IV drug use and a history of MRSA who presented to the emergency room with worsening right forearm swelling, redness, and pain. The patient states for the past 4 to 5 days, she noticed that her right arm had redness and swelling and it had a hard bump initially and then was able to express pus, but now there is an open wound there and she has significant amount of pain and discomfort. The patient states that she felt warm 1 day prior to her admission and vomited twice. Today, she has been sleeping all day, very lethargic. No appetite. She states that her blood sugars are not really well controlled. She states she ran out of strips, had strips for several months and managed her insulin with carb counting and continuous infusion. She has had an issue trying to reestablish with a primary care due to her insurance reasons. Regarding her IV drug use history, she states that she last injected 3 months ago. She on admission denied any chest pain, shortness of breath. No further nausea, vomiting. No abdominal pain. No urinary symptoms. Otherwise, remaining review of systems was all negative. In the emergency room, the patient had labs. She was given a liter of fluid. She was told to give herself 10 units of her insulin through a pump. She was given 30 mg of Toradol, Levaquin, and vancomycin. Referred for evaluation of her cellulitis and hyperglycemia. While in the hospital, her blood sugars continue to be elevated and in discussing her insulin pump with her, the patient reports that her supplies need to be changed in that she has not had new supplies sent to her in approximately 6 months. She reports that her insulin was an old vial of insulin and that she has not had her insulin refilled until lately, but she used up the old vial of insulin from approximately a year ago. After that discussion, she discontinued her insulin pump and we changed her to Lantus and carb counting and sliding scale coverage. Her blood sugars were more decreased. The patient states today that she does have insulin pump supplies at home. She was given a prescription for insulin upon discharge. Today, she denies any nausea, vomiting, or diarrhea. Denies any increased pain. Reports that the redness and swelling in her right arm and pain have subsided. At this time, she is stable for discharge home. Ms. Darby will be discharged back home today. Vital signs are as follows, blood pressure 143/60, temp was 97.5, heart rate was 59, respirations 16, O2 saturation was 100% on room air. DISCHARGE PLAN: 1. Ms. Darby will be discharged back home. 2. Activity as tolerated. 3. For treatment of her cellulitis, she should continue Levaquin 750 mg p.o. daily for the next 10 days. She was instructed to watch for signs of increased infection, redness, swelling, or any red streaking or increased drainage, increased pain. She was instructed to return to the emergency room for any of those symptoms and verbalized understanding. 4. Diabetes. Per diabetic treatment, she was instructed to change all of her insulin pump supplies and replace her current insulin cartridge with new insulin. She verbalized understanding. She does report that she has all of the insulin and pump supplies at home. She was provided with a new prescription for Humalog insulin at discharge. I also provided her with testing strips and lancets to check her blood sugar. FOLLOWUP: She should follow up with a new established primary care provider, Mala Gutierrez, on 08/06/17 at 10 a.m. The patient was informed of this appointment and verbalized understanding. We also sent a referral to [facility] for an appointment in 4 to 7 days to assist with her diabetes and management. The patient was instructed to return to the emergency room for any increased redness, drainage, fevers, chills, or pain to her right arm as well as chest pain or shortness of breath or the inability to control her blood sugars. The patient verbalized understanding. This is a summary of her medical hospitalization. For further details, please see the entire medical record. TIME SPENT: Time spent on this discharge was approximately 60 minutes, greater than half that time was spent with the patient discussing her discharge plans. CONDITION ON DISCHARGE: Stable. ASHELY HAM, RODERICK [id number]/[facility] #: [id number] RAMÍREZ
== END 2017-08-01 19:18 | disposition home or self-care (01) | DRG 383 ==
LOC: ED 22:13 → SSU 07-29 01:09
PROVIDERS: ADMIT Pediatrics; ATTEND Internal Medicine
DX: L03.113 Cellulitis of right upper limb (principal); E10.10 Type 1 diabetes mellitus with ketoacidosis without coma; Z96.41 Presence of insulin pump (external) (internal); F17.210 Nicotine dependence, cigarettes, uncomplicated; F19.90 Other psychoactive substance use, unspecified, uncomplicated; Z86.14 Personal history of Methicillin resistant Staphylococcus aureus infection; Z79.4 Long term (current) use of insulin; Z88.1 Allergy status to other antibiotic agents; Z87.440 Personal history of urinary (tract) infections
CPT/HCPCS: 36415; 80048; 80053; 80202; 81003; 82565; 82803; 82947; 83036; 83605; 84520; 84702; 85025; 87040; 87070; 87077; 87186; 87205; 87640; 87641; 90715; 99284; A9270-GY; J1885; J3370

== ENCOUNTER 2018-11-20 21:49 | Emergency (ER) | payer OTHER ==
[2018-11-20 22:22] VITALS: BP 129/68
--- NOTE | 2018-11-20 22:58 | UC ---
Skin Complaint HPI - HPI Summary HPI Summary: 28-year-old female with type 1 diabetes presents with complaints of an abscess to her left upper arm for the past 2 days. States she has a history of multiple abscesses in the past. She has tested positive for MRSA once. Patient has a past history of IV drug use but declines current IV drug use. She is followed at [facility] [place] her primary care. Denies fever, chills, weakness, dizziness, or malaise. - History of Current Complaint Chief Complaint: UCSkin Stated Complaint: WOUND ON ARM Hx Obtained From: Patient Hx Last Menstrual Period: 2 weeks ago Pain Intensity: 5 - Allergy/Home Medications Allergies/Adverse Reactions: Allergies Allergy/AdvReac Type Severity Reaction Status Date / Time amoxicillin Allergy Anaphylatic Verified 11/20/18 22:16 Shock cefaclor [From Ceclor] Allergy Anaphylatic Verified 11/20/18 22:16 Shock Penicillins Allergy Anaphylatic Verified 11/20/18 22:16 Shock Home Medications: Home Medications Insulin Glargine,Hum.rec.anlog [Nadine Heath] 22 unit SC DAILY 11/20/18 [ History Confirmed 11/20/18] PMH/Surg Hx/FS Hx/Imm Hx Endocrine History: Diabetes Other History Of: Negative For: HIV, Hepatitis B, Hepatitis C - Surgical History Surgical History: Yes Surgery Procedure, Year, and Place: C-SECTIONS x 2 - Family History Known Family History: Positive: Non-Contributory - Social History Occupation: Works From/At Home Lives: With Family Alcohol Use: None Substance Use Type: Heroin Substance Use Comment - Amount & Last Used: Pt states she has been clean for 3 months Smoking Status (MU): Heavy Every Day Tobacco Smoker Type: Cigarettes Amount Used/How Often: 1/2 PPD Length of Time of Smoking/Using Tobacco: 7 Have You Smoked in the Last Year: Yes Household Exposure Type: Cigarettes - Immunization History Most Recent Influenza Vaccination: 2009 Most Recent Tetanus Shot: UNSURE Most Recent Pneumonia Vaccination: NEVER Review of Systems All Other Systems Reviewed And Are Negative: Yes Constitutional: Negative: Fever, Chills Skin: Positive: Other - see HPI Respiratory: Positive: Negative Cardiovascular: Positive: Negative Gastrointestinal: Positive: Negative Genitourinary: Positive: Negative Musculoskeletal: Positive: Negative Neurological: Positive: Negative Is Patient Immunocompromised?: No Physical Exam - Summary Physical Exam Summary: GENERAL APPEARANCE: Well developed, well nourished, alert and cooperative, and appears to be in no acute distress. CARDIAC: Normal S1 and S2. No S3, S4 or murmurs. Rhythm is regular. There is no peripheral edema, cyanosis or pallor. Extremities are warm and well perfused. Capillary refill is less than 2 seconds. Peripheral pulses intact. LUNGS: Clear to auscultation without rales, rhonchi, wheezing or diminished breath sounds. ABDOMEN: Positive bowel sounds. Soft, nondistended, nontender. No guarding or rebound. No masses or hepatosplenomegally. MUSKULOSKELETAL: ROM intact to all extremities. No joint erythema or tenderness. Normal muscular development. Normal gait. SKIN: 4 cm x 3.5 cm area of erythema and induration with a large amount of fluctuance to her left anterior upper arm Triage Information Reviewed: Yes Vital Signs: Initial Vital Signs Temp 99.2 F 11/20/18 22:18 Pulse 88 11/20/18 22:18 Resp 18 11/20/18 22:18 BP 129/68 11/20/18 22:18 Pulse Ox 99 11/20/18 22:18 Vital Signs Reviewed: Yes Procedures - Procedure Summary Procedure Summary: PROCEDURE NOTE: Incision and drainage PROCEDURE: Informed consent was obtained and timeout protocol was performed prior to initiating the procedure. The skin was prepped with Betadine and the area draped in the usual manner. Patient declined local anesthesia and her declination was witnessed by Estrella Phelan RN. A stab incision was made into the center of the abscess and the purulent material expressed. A wound culture was taken and sent. The wound was irrigated copiously with sterile saline. A bulky gauze dressing was then placed. Bleeding was minimal. The patient tolerated the procedure well without complications. Standard post- procedure care is explained and return precautions were given. Course/Dx - Course Course Of Treatment: 28-year-old female with type 1 diabetes presents with complaints of an abscess to her left upper arm for the past 2 days. States she has a history of multiple abscesses in the past. She has tested positive for MRSA once. Patient has a past history of IV drug use but declines current IV drug use. She is followed at [facility] for her primary care. Denies fever, chills, weakness, dizziness, or malaise. Afebrile. Vital signs stable. Patient had a 4 cm x 3.5 cm area of erythema and induration with a large amount of fluctuance to her left anterior upper arm and otherwise unremarkable exam. An I&D was performed. Patient declined local anesthesia. I explained to the patient that without proper anesthesia and may not be able to fully drained and clean the abscess adequately. Patient verbalized understanding and continued to decline. Because the patient did not receive local anesthesia I only used a stab incision to the abscess. I was able to drain a large amount of purulent drainage from the abscess. A wound culture was taken and sent. I then irrigated the wound with a copious amount of sterile saline. A bulky gauze dressing was then applied by the RN. Patient was given a dose of Bactrim DS 1 tab PO and naproxen 500 mg PO in the clinic. She is to continue taking Bactrim DS 1 tab twice a day 10 days. With her history of diabetes and because I did not feel that was able to do an adequate I&D that would allow me to break up any loculations I encouraged the patient to return here or follow up at [facility] in 2 days to have a wound check. Anticipatory guidance and warning symptoms were reviewed with the patient. She verbalizes understanding and agrees with plan of care. - Differential Diagnoses - Skin Complaint Differential Diagnoses: Abscess, MRSA - Diagnoses Provider Diagnosis: Abscess of left arm Discharge - Sign-Out/Discharge Documenting (check all that apply): Patient Departure All imaging exams completed and their final reports reviewed: No Studies - Discharge Plan Condition: Stable Disposition: HOME Prescriptions: Sulfamethox/Trimethoprim DS* [Bactrim DS 800/160 TAB*] 1 tab PO BID #20 tab Patient Education Materials: Abscess (ED) Referrals: No Primary Care Phys,NOPCP [Primary Care Provider] - Additional Instructions: The abscess to your left upper arm was drained in the clinic. A wound culture was sent and we will contact you if it shows that we need to make any changes to your plan of care. Leave the dressing that was applied in the clinic in place for the next 24 hours. After 24 hours you may remove and shower as normal. You should apply a gauze dressing to the wound to catch any drainage. This should be changed at least twice a day. We will start should on an antibiotic to treat you for the infection. Take Bactrim DS one tablet twice a day for 10 days. You're given the first dose in the clinic. Use acetaminophen (Tylenol) see or ibuprofen (Advil, Motrin) according to directions as needed for pain. Return here or follow-up at [facility] within 2 days for recheck of the wound. Call to schedule an appointment at [facility]. Seek immediate medical attention in the emergency room if you develop a fever greater than 100.5 F, has severe pain that is not managed with pain medication, redness that spreads, red streak up her arm, swelling of the arm, or any worsening of symptoms. - Billing Disposition and Condition Condition: STABLE Disposition: Home
[2018-11-20] MEDS ORDERED: Naproxen TAB* 250 MG PO ONE (23:16)
[2018-11-20] MEDS ORDERED: Sulfamethox/Trimethoprim DS 800/160* TAB PO ONE (23:16)
== END 2018-11-20 23:35 | disposition home or self-care (01) ==
LOC: UCEAST 21:49
DX: L02.414 Cutaneous abscess of left upper limb (principal); E11.9 Type 2 diabetes mellitus without complications; Z79.4 Long term (current) use of insulin; Z88.0 Allergy status to penicillin; Z88.1 Allergy status to other antibiotic agents; F17.210 Nicotine dependence, cigarettes, uncomplicated
CPT/HCPCS: 10060; 87070; 87205; 87640; 87641; 99212; A9270-GY; G0463

== ENCOUNTER 2019-08-17 20:07 | Emergency (ER) | payer OTHER ==
[2019-08-17 20:27] VITALS: BP 115/63
== END 2019-08-17 20:39 | disposition left against medical advice (07) ==
LOC: UCEAST 20:07
DX: Z53.21 Procedure and treatment not carried out due to patient leaving prior to being seen by health care provider (principal)